=== PATIENT | female | born 1975 | race Caucasian/White ===

== ENCOUNTER 2020-04-30 11:05 | Inpatient (IN) | payer BC ==
[2020-04-30] MEDS ORDERED: PHENAZOPYRIDINE 100 MG TAB PO STA (11:20)
[2020-04-30] MEDS ORDERED: KETOROLAC 15 MG/ML 1 ML VIAL IVP STA (11:20)
[2020-04-30] MEDS ORDERED: ONDANSETRON 4 MG/2 ML VIAL IVP STA (11:20)
[2020-04-30] MEDS ORDERED: SODIUM CHLORIDE 0.9% 1,000 ML IV STA (11:20)
--- NOTE | 2020-04-30 11:25 | ED ---
Abdominal Pain HPI - General Chief Complaint: Abdominal Pain Stated Complaint: hematuria Time Seen by Provider: 04/30/20 11:11 Source: patient, RN notes reviewed Mode of arrival: ambulatory Limitations: no limitations - History of Present Illness Initial Comments: This is a 44-year-old female history kidney stones in the past who states for the past 2 days she's had burning with urination hematuria and very low anterior pelvic pain. No overt flank pain. She states this is different than her kidney stones event. No nausea no vomiting no overt fevers chills or sweats reported. Pain is very severe and sharp in nature. It does get somewhat worse with urinating. No trauma reported no other modifying factors at this time she did try to take some laxative but that did not help either. MD Complaint: abdominal pain - Related Data Home Medications Medication Instructions Recorded Confirmed HYDROcodone/APAP 10-325MG [[place] 1 - 2 tab PO Q4H PRN 04/30/20 04/30/20 10-325] Phentermine HCl [Adipex-P] 37.5 mg PO DAILY 04/30/20 04/30/20 Allergies Allergy/AdvReac Type Severity Reaction Status Date / Time No Known Allergies Allergy Verified 04/30/20 11:33 Review of Systems ROS Statement: Those systems with pertinent positive or pertinent negative responses have been documented in the HPI. ROS Other: All systems not noted in ROS Statement are negative. Past Medical History Past Medical History: No Reported History History of Any Multi-Drug Resistant Organisms: None Reported Past Surgical History: Cholecystectomy Additional Past Surgical History / Comment(s): Kidney stones Past Psychological History: No Psychological Hx Reported Smoking Status: Current every day smoker Past Alcohol Use History: None Reported Past Drug Use History: None Reported General Exam - General Exam Comments Initial Comments: this is a well-developed well-nourished awake alert oriented 3 female Limitations: no limitations General appearance: alert, anxious, in distress Head exam: Present: atraumatic, normocephalic, normal inspection Eye exam: Present: normal appearance, PERRL, EOMI. Absent: scleral icterus, conjunctival injection, periorbital swelling ENT exam: Present: normal exam, mucous membranes moist Neck exam: Present: normal inspection. Absent: tenderness, meningismus, lymphadenopathy Respiratory exam: Present: normal lung sounds bilaterally. Absent: respiratory distress, wheezes, rales, rhonchi, stridor Cardiovascular Exam: Present: normal rhythm, tachycardia, normal heart sounds. Absent: systolic murmur, diastolic murmur, rubs, gallop, clicks GI/Abdominal exam: Present: soft, tenderness, normal bowel sounds. Absent: distended, guarding, rebound, rigid, bruit, pulsatile mass, hernia Rectal exam: Present: deferred Extremities exam: Present: normal inspection, full ROM, normal capillary refill. Absent: tenderness, pedal edema, joint swelling, calf tenderness Back exam: Present: normal inspection, full ROM. Absent: CVA tenderness (R), CVA tenderness (L) Neurological exam: Present: alert, oriented X3, CN II-XII intact Psychiatric exam: Present: normal affect, normal mood Skin exam: Present: warm, dry, intact, normal color. Absent: rash Course Vital Signs 04/30/20 04/30/20 04/30/20 11:09 11:43 12:14 Temperature 97.6 F Pulse Rate 122 H 111 H 104 H Respiratory 20 18 18 Rate Blood Pressure 143/87 133/81 113/67 O2 Sat by Pulse 96 95 94 L Oximetry 04/30/20 04/30/20 12:44 13:05 Temperature Pulse Rate 105 H 101 H Respiratory 18 18 Rate Blood Pressure 138/77 124/66 O2 Sat by Pulse 94 L 97 Oximetry Medical Decision Making - Medical Decision Making I did discuss findings with the patient as well as Dr. Desai. H will be admitted on IV antibiotics and fluids and pain control. - Lab Data Result diagrams: 04/30/20 11:45 04/30/20 11:45 Lab Results 04/30/20 04/30/20 04/30/20 Range/Units 11:45 11:45 11:45 WBC 31.8 H (3.8-10.6) k/uL RBC 5.48 H (3.80-5.40) m/uL Hgb 16.5 H (11.4-16.0) gm/dL Hct 49.9 H (34.0-46.0) % MCV 91.1 (80.0-100.0) fL MCH 30.2 (25.0-35.0) pg MCHC 33.1 (31.0-37.0) g/dL RDW 13.2 (11.5-15.5) % Plt Count 214 (150-450) k/uL MPV 9.4 Neutrophils % 90 % Lymphocytes % 5 % Monocytes % 3 % Eosinophils % 2 % Basophils % 1 % Neutrophils # 28.6 H (1.3-7.7) k/uL Lymphocytes # 1.5 (1.0-4.8) k/uL Monocytes # 0.9 (0-1.0) k/uL Eosinophils # 0.5 (0-0.7) k/uL Basophils # 0.2 (0-0.2) k/uL Manual Slide Review Performed Toxic Granulation Present Sodium 137 (137-145) mmol/L Potassium 3.9 (3.5-5.1) mmol/L Chloride 100 (98-107) mmol/L Carbon Dioxide 25 (22-30) mmol/L Anion Gap 12 mmol/L BUN 21 H (7-17) mg/dL Creatinine 0.85 (0.52-1.04) mg/dL Est GFR (CKD-EPI)AfAm >90 (>60 ml/min/1.73 sqM) Est GFR (CKD-EPI)NonAf 83 (>60 ml/min/1.73 sqM) Glucose 118 H (74-99) mg/dL Plasma Lactic Acid James (0.7-2.0) mmol/L Calcium 9.6 (8.4-10.2) mg/dL Total Bilirubin 1.0 (0.2-1.3) mg/dL AST 23 (14-36) U/L ALT 28 (4-34) U/L Alkaline Phosphatase 162 H (38-126) U/L Creatine Kinase <20 L (30-135) U/L Total Protein 7.8 (6.3-8.2) g/dL Albumin 4.0 (3.5-5.0) g/dL Amylase <30 L (30-110) U/L Lipase 23 (23-300) U/L Urine Color Yellow Urine Appearance Turbid H (Clear) Urine pH 6.0 (5.0-8.0) Ur Specific [place] 1.027 (1.001-1.035) Urine Protein 2+ H (Negative) Urine Glucose (UA) Negative (Negative) Urine Ketones 2+ H (Negative) Urine Blood Large H (Negative) Urine Nitrite Positive H (Negative) Urine Bilirubin 1+ H (Negative) Urine Urobilinogen 6.0 (<2.0) mg/dL Ur Leukocyte Esterase Large H (Negative) Urine RBC 27 H (0-5) /hpf Urine WBC 155 H (0-5) /hpf Urine WBC Clumps Occasional H (None) /hpf Ur Squamous Epith Cells 71 H (0-4) /hpf Urine Bacteria Many H (None) /hpf Urine Mucus Many H (None) /hpf 04/30/20 Range/Units 13:43 WBC (3.8-10.6) k/uL RBC (3.80-5.40) m/uL Hgb (11.4-16.0) gm/dL Hct (34.0-46.0) % MCV (80.0-100.0) fL MCH (25.0-35.0) pg MCHC (31.0-37.0) g/dL RDW (11.5-15.5) % Plt Count (150-450) k/uL MPV Neutrophils % % Lymphocytes % % Monocytes % % Eosinophils % % Basophils % % Neutrophils # (1.3-7.7) k/uL Lymphocytes # (1.0-4.8) k/uL Monocytes # (0-1.0) k/uL Eosinophils # (0-0.7) k/uL Basophils # (0-0.2) k/uL Manual Slide Review Toxic Granulation Sodium (137-145) mmol/L Potassium (3.5-5.1) mmol/L Chloride (98-107) mmol/L Carbon Dioxide (22-30) mmol/L Anion Gap mmol/L BUN (7-17) mg/dL Creatinine (0.52-1.04) mg/dL Est GFR (CKD-EPI)AfAm (>60 ml/min/1.73 sqM) Est GFR (CKD-EPI)NonAf (>60 ml/min/1.73 sqM) Glucose (74-99) mg/dL Plasma Lactic Acid James 0.7 (0.7-2.0) mmol/L Calcium (8.4-10.2) mg/dL Total Bilirubin (0.2-1.3) mg/dL AST (14-36) U/L ALT (4-34) U/L Alkaline Phosphatase (38-126) U/L Creatine Kinase (30-135) U/L Total Protein (6.3-8.2) g/dL Albumin (3.5-5.0) g/dL Amylase (30-110) U/L Lipase (23-300) U/L Urine Color Urine Appearance (Clear) Urine pH (5.0-8.0) Ur Specific [place] (1.001-1.035) Urine Protein (Negative) Urine Glucose (UA) (Negative) Urine Ketones (Negative) Urine Blood (Negative) Urine Nitrite (Negative) Urine Bilirubin (Negative) Urine Urobilinogen (<2.0) mg/dL Ur Leukocyte Esterase (Negative) Urine RBC (0-5) /hpf Urine WBC (0-5) /hpf Urine WBC Clumps (None) /hpf Ur Squamous Epith Cells (0-4) /hpf Urine Bacteria (None) /hpf Urine Mucus (None) /hpf - Radiology Data Radiology results: report reviewed (Imaging reviewed evidence of possible colitis kidney stone left kidney but no obstruction appendix not visualized but no evidence of this time of appendicitis. Recently complete report), image reviewed Disposition Clinical Impression: Urinary tract infection, Abdominal pain, Pyelonephritis, Leukocytosis, Dehydration Disposition: ADMITTED IP TO THIS [facility] Condition: Fair Referrals: Nonstaff,Physician [Primary Care Provider] - 1-2 days
[2020-04-30 11:50] LABS: Basophils # (A) 0.2 k/uL (0-0.2); Basophils % (A) 1 %; Eosinophils # (A) 0.5 k/uL (0-0.7); Eosinophils % (A) 2 %; HCT 49.9 % (34.0-46.0); HGB 16.5 gm/dL (11.4-16.0); Lymphocytes # (A) 1.5 k/uL (1.0-4.8); Lymphocytes % (A) 5 %; MCH 30.2 pg (25.0-35.0); MCHC 33.1 g/dL (31.0-37.0); MCV 91.1 fL (80.0-100.0); Mean Platelet Volume 9.4; Monocytes # (A) 0.9 k/uL (0-1.0); Monocytes % (A) 3 %; Neutrophils # (A) 28.6 k/uL (1.3-7.7); Neutrophils % (A) 90 %; Platelet Count 214 k/uL (150-450); RBC 5.48 m/uL (3.80-5.40); RDW 13.2 % (11.5-15.5); WBC 31.8 k/uL (3.8-10.6)
[2020-04-30 12:05] LABS: ALT 28 U/L (4-34); AST 23 U/L (14-36); African American GFR (CKD) >90 (>60 ml/min/1.73 sqM); Alkaline Phosphatase 162 U/L (38-126); Amylase <30 U/L (30-110); Anion Gap 12 mmol/L; Blood Urea Nitrogen 21 mg/dL (7-17); Calcium 9.6 mg/dL (8.4-10.2); Carbon Dioxide 25 mmol/L (22-30); Chloride 100 mmol/L (98-107); Creatine Kinase <20 U/L (30-135); Glucose 118 mg/dL (74-99); Lipase 23 U/L (23-300); Non-African American GFR(CKD) 83 (>60 ml/min/1.73 sqM); Potassium 3.9 mmol/L (3.5-5.1); Sodium 137 mmol/L (137-145); Total Protein 7.8 g/dL (6.3-8.2)
[2020-04-30] MEDS ORDERED: HYDROmorphone 1 MG/ML 1 ML SYRINGE IVP STA ×2 (12:09→13:16)
[2020-04-30 12:12] LABS: Toxic Granulation Present
[2020-04-30 12:14] LABS: Appearance,Urine Turbid (Clear); Bacteria,Urine Many /hpf; Bilirubin,Urine 1+ (Negative); Blood,Urine Large (Negative); Color,Urine Yellow; Glucose,Urine (UA) Negative (Negative); Ketones,Urine 2+ (Negative); Leukocyte Esterase,Urine Large (Negative); Mucus,Urine Many /hpf; Nitrite,Urine Positive (Negative); Protein,Urine 2+ (Negative); RBC,Urine 27 /hpf (0-5); Specific Gravity,Urine 1.027 (1.001-1.035); Squamous Epithelial Cell,Urine 71 /hpf (0-4); WBC,Urine 155 /hpf (0-5)
--- NOTE | 2020-04-30 12:14 | XR ---
KUB HISTORY: History kidney stones and abdominal pain For KUB and T2 images Surgical clips are present right upper quadrant. There is a calcification in the right upper quadrant measuring approximately 8 mm. Some air-fluid levels are present without bowel distention. Degenerati ve disc changes are present in the visualized spine. No evident pneumoperitoneum. IMPRESSION: Indeterminate right upper quadrant calcification. Postop changes.
[2020-04-30] MEDS ORDERED: cefTRIAXone IN SWFI 1,000 MG/10 ML SYRINGE IVP STA (12:52)
--- NOTE | 2020-04-30 13:20 | CT ---
EXAMINATION TYPE: CT abdomen pelvis wo con DATE OF EXAM: 04/30/2020 COMPARISON: KUB same date HISTORY: Pelvic pain. CT DLP: 746.5 mGycm Automated exposure control for dose reduction was used. TECHNIQUE: Helical acquisition of images from the lung bases through the pelvis. FINDINGS: Lack of intravenous contrast could compromise sensitivity. LUNG BASES: No significant abnormality is appreciated. AORTA: No significant abnormality is appreciated. LIVER/GB: Patient is post cholecystectomy. No evident liver mass.. PANCREAS: No significant abnormality is seen. Probable duodenal diverticulum present at the head of t he pancreas, there is a focus of air probable air-fluid level SPLEEN: No significant abnormality is seen. ADRENALS: No significant abnormality is seen. KIDNEYS: There is no hydronephrosis or ureteral calcification. Calcification seen on plain film is pr esent and is likely parenchymal and anterior cortex of the right kidney measures 1 cm, there is a non obstructive punctate calculus present at the upper pole. At the upper pole the left kidney there is a nonobstructive calculus measuring approximately 6 to 7 mm. The cortex of left kidney somewhat more l obular than on the right, probable cortical cysts present at the midpole level measuring 15 mm. REPRODUCTIVE ORGANS: No significant abnormality is seen. URINARY BLADDER: No significant abnormality is seen. BOWEL: Scattered diverticular changes present within the colon, question some colonic wall thickenin g, the appendix is not seen definitively, question some small bowel fold thickening. Suspect there is some inflammatory changes in the right lower quadrant, axial image 114. FREE AIR: No Free Air is visible. ASCITES: There is some minimal free fluid present within the pelvis.. PELVIC ADENOPATHY: None visualized. RETROPERITONEAL ADENOPATHY: No Retroperitoneal Adenopathy visible. OSSEOUS STRUCTURES: No significant abnormality is seen. IMPRESSION: CORRELATE FOR POSSIBLE COLITIS, ENTERITIS, THERE IS DIVERTICULOSIS AND SOME QUESTIONABLE INFLAMMATORY CHANGE IN THE RIGHT LOWER QUADRANT. Noncontrast exam.
[2020-04-30] MEDS ORDERED: NALOXONE 0.4 MG/ML 1 ML VIAL IV PRN (14:07)
--- NOTE | 2020-04-30 15:23 | P.HPIM ---
History of Present Illness H&P Date: 04/30/20 Chief Complaint: Abdominal pain, dysuria, hematuria 44 year old woman with history of recurrent kidney stones presented with 2 days of hematuria, and increasing dysuria. Patient says that she noticed that in the last couple days, she had sudden onset of pain with urination and it appeared grossly bloody. She also noted that she started to feel abdominal pain in her lower b/l quadrants as well during this time. She has had kidney stones in the past, but notes that this was unlike her kidney stone pain or presentation in episodes past. She denies any other symptoms including fevers, chills, nausea, vomiting, chest pain, palps, dyspnea, syncope, presyncope, dyschezia, hematochezia, melena, diarrhea, numbness/weakness of extremities. In the ER, she was noted to be afebrile, 104/68, tachy to 104. Labs demonstrate significant leukocytosis to 31.8, Hgb 16.5. UA is turbid with 2+ketones, gross hematuria, positive nitrite, large LE; but it is also contaminated with [address] A/P demonstrated colitis, enteritis and some questionable inflammatory change in the RLQ. KUB had questionable RUQ calcification. Review of Systems All Systems reviewed and pertinent positives and negatives noted in HPI, all other symptoms are negative Past Medical History Past Medical History: No Reported History History of Any Multi-Drug Resistant Organisms: None Reported Past Surgical History: Cholecystectomy Additional Past Surgical History / Comment(s): Kidney stones Past Psychological History: No Psychological Hx Reported Smoking Status: Current every day smoker Past Alcohol Use History: None Reported Past Drug Use History: None Reported Medications and Allergies Home Medications Medication Instructions Recorded Confirmed Type HYDROcodone/APAP 10-325MG [[place] 1 - 2 tab PO Q4H PRN 04/30/20 04/30/20 History 10-325] Phentermine HCl [Adipex-P] 37.5 mg PO DAILY 04/30/20 04/30/20 History Allergies Allergy/AdvReac Type Severity Reaction Status Date / Time No Known Allergies Allergy Verified 04/30/20 11:33 Physical Exam Osteopathic Statement: *. No significant issues noted on an osteopathic structural exam other than those noted in the History and Physical/Consult. Vitals: Vital Signs Temp Pulse Resp BP Pulse Ox 04/30/20 15:00 97.6 F 97 18 104/68 95 04/30/20 14:36 97 18 104/68 95 04/30/20 13:05 101 H 18 124/66 97 04/30/20 12:44 105 H 18 138/77 94 L 04/30/20 12:14 104 H 18 113/67 94 L 04/30/20 11:43 111 H 18 133/81 95 04/30/20 11:09 97.6 F 122 H 20 143/87 96 Intake and Output 04/30/20 04/30/20 04/30/20 06:59 14:59 22:59 Other: Weight 81.647 kg Gen: awake, alert HEENT: normocephalic, atraumatic, good hearing acuity, moist mucous membranes Resp: good air exchange, breathing comfortably with no accessory muscle use, clear to auscultation bilaterally without wheezes CVS: good distal perfusion x 4, regular rate and rhythm without murmurs GI: Soft, exquisitely tender palpation, shaking the bed does elicit pain, no rebound, voluntary guarding : no SPT, no CVAT, owens catheter not present MSK: no pitting edema, no clubbing Neuro: non-focal, moving all extremities Psych: cooperative, euthymic mood Results CBC & Chem 7: 04/30/20 11:45 04/30/20 11:45 Labs: Abnormal Lab Results - Last 24 Hours (Table) 04/30/20 04/30/20 04/30/20 Range/Units 11:45 11:45 11:45 WBC 31.8 H (3.8-10.6) k/uL RBC 5.48 H (3.80-5.40) m/uL Hgb 16.5 H (11.4-16.0) gm/dL Hct 49.9 H (34.0-46.0) % Neutrophils # 28.6 H (1.3-7.7) k/uL BUN 21 H (7-17) mg/dL Glucose 118 H (74-99) mg/dL Alkaline Phosphatase 162 H (38-126) U/L Creatine Kinase <20 L (30-135) U/L Amylase <30 L (30-110) U/L Urine Appearance Turbid H (Clear) Urine Protein 2+ H (Negative) Urine Ketones 2+ H (Negative) Urine Blood Large H (Negative) Urine Nitrite Positive H (Negative) Urine Bilirubin 1+ H (Negative) Ur Leukocyte Esterase Large H (Negative) Urine RBC 27 H (0-5) /hpf Urine WBC 155 H (0-5) /hpf Urine WBC Clumps Occasional H (None) /hpf Ur Squamous Epith Cells 71 H (0-4) /hpf Urine Bacteria Many H (None) /hpf Urine Mucus Many H (None) /hpf Assessment and Plan Assessment: 1. Colitis, Enteritis 2. Hematuria 3. History of Kidney Stones 44 year old woman with history of kidney stones presented with worsening hematuria, dysuria, but imaging findings were concerning for colitis and en teritis with question of appendicitis. Plan: - admit to observation - start broad spectrum abx for GI and UTI coverage - rec'd ceftriaxone in the ER, d/c'd - cipro/flagyl started - repeat UA due to high squam count of first sample - await stool culture, c diff, pending - general surgery consult, pending - if infectious colitis ruled out, can consider colonoscopy for evaluation of IBD - consider repeat CT Abd/Pelvis with IV contrast to rule out fistula - pain control with: dilaudid PRN - IVF: NS 130cc/hr - Pt is NPO pending clearance from surgery Full Code
[2020-04-30] MEDS: metroNIDAZOLE-NS PMX 500 MG in SALINE 1 100ML.BAG IVPB SCH ×2 (16:23→22:49)
[2020-04-30] MEDS: HYDROmorphone 0.5 MG/0.5 ML SYRINGE IVP PRN ×3 (16:23→22:47)
[2020-04-30] MEDS: SODIUM CHLORIDE 0.9% 1,000 ML IV SCH ×2 (17:15→19:53)
[2020-04-30 18:43] LABS: Appearance,Urine Cloudy (Clear); Bacteria,Urine Occasional /hpf; Bilirubin,Urine 1+ (Negative); Blood,Urine Moderate (Negative); Color,Urine Dark Brown; Glucose,Urine (UA) Negative (Negative); Ketones,Urine Negative (Negative); Leukocyte Esterase,Urine Small (Negative); Mucus,Urine Many /hpf; Nitrite,Urine Positive (Negative); PH, Urine 5.5 (5.0-8.0); Protein,Urine 1+ (Negative); RBC,Urine 30 /hpf (0-5); Specific Gravity,Urine 1.027 (1.001-1.035); Squamous Epithelial Cell,Urine 6 /hpf (0-4); WBC,Urine 49 /hpf (0-5)
[2020-04-30] MEDS: ONDANSETRON 4 MG/2 ML VIAL IVP PRN (19:46)
[2020-04-30] MEDS: CIPROFLOXACIN/DEXTROSE PMX 400 MG in DEXTROSE/WATER 1 200ML.BAG IVPB SCH (19:53)
[2020-05-01] MEDS: HYDROmorphone 0.5 MG/0.5 ML SYRINGE IVP PRN ×6 (01:53→20:58)
[2020-05-01] MEDS: SODIUM CHLORIDE 0.9% 1,000 ML IV SCH ×3 (04:50→21:09)
[2020-05-01] MEDS: ONDANSETRON 4 MG/2 ML VIAL IVP PRN ×2 (04:51→20:58)
[2020-05-01 06:19] LABS: Basophils # (A) 0.1 k/uL (0-0.2); Basophils % (A) 0 %; Eosinophils # (A) 0.3 k/uL (0-0.7); Eosinophils % (A) 2 %; HCT 42.8 % (34.0-46.0); HGB 13.8 gm/dL (11.4-16.0); Hypochromasia Slight; Lymphocytes # (A) 1.3 k/uL (1.0-4.8); Lymphocytes % (A) 6 %; MCH 29.9 pg (25.0-35.0); MCHC 32.3 g/dL (31.0-37.0); MCV 92.8 fL (80.0-100.0); Mean Platelet Volume 9.8; Monocytes % (A) 4 %; Neutrophils # (A) 19.4 k/uL (1.3-7.7); Neutrophils % (A) 87 %; Platelet Count 196 k/uL (150-450); RBC 4.61 m/uL (3.80-5.40); RDW 13.2 % (11.5-15.5); WBC 22.2 k/uL (3.8-10.6)
[2020-05-01] MEDS: metroNIDAZOLE-NS PMX 500 MG in SALINE 1 100ML.BAG IVPB SCH ×2 (07:36→15:54)
[2020-05-01] MEDS ORDERED: MORPHINE SULFATE 4 MG/ML SYRINGE IVP PRN (08:32)
[2020-05-01 08:55] LABS: African American GFR (CKD) >90 (>60 ml/min/1.73 sqM); Anion Gap 10 mmol/L; Blood Urea Nitrogen 16 mg/dL (7-17); Calcium 8.1 mg/dL (8.4-10.2); Carbon Dioxide 19 mmol/L (22-30); Chloride 104 mmol/L (98-107); Glucose 87 mg/dL (74-99); Non-African American GFR(CKD) >90 (>60 ml/min/1.73 sqM); Potassium 3.8 mmol/L (3.5-5.1); Sodium 133 mmol/L (137-145)
[2020-05-01] MEDS ORDERED: PANTOPRAZOLE 40 MG/10 ML VIAL IV SCH (09:00)
[2020-05-01] MEDS ORDERED: NON FORMULARY DRUG (Phentermine Hcl [Adipex-P] 37.5 MG Tablet) PO SCH (09:00)
[2020-05-01] MEDS: CIPROFLOXACIN/DEXTROSE PMX 400 MG in DEXTROSE/WATER 1 200ML.BAG IVPB SCH ×2 (09:10→20:58)
[2020-05-01] MEDS ORDERED: IOPAMIDOL CONTRAST (ORAL USE) VIAL PO PRN (09:43)
--- NOTE | 2020-05-01 11:28 | CT ---
EXAMINATION TYPE: CT abdomen pelvis w con DATE OF EXAM: 05/01/2020 HISTORY: Pelvic pain, abn CT CT DLP: 1262.8mGycm Automated Exposure Control for Dose Reduction was Utilized. CONTRAST: CT scan of the abdomen and pelvis is performed with IV Contrast, patient injected with 100 mL of Isov ue 300. COMPARISON: CT abdomen and pelvis from yesterday FINDINGS: LUNG BASES: Persistent mild to moderate lateral right basilar linear scarring and/or atelectasis. Dev eloping areas of groundglass opacity in the posterior bases right greater than left could reflect ate lectatic change and/or edema versus early infiltrates. Correlate clinically. Edema or atelectasis amaya pected. LIVER/GB: Cholecystectomy clips redemonstrated. PANCREAS: No significant abnormality is seen. SPLEEN: No significant abnormality is seen. ADRENALS: No significant abnormality is seen. KIDNEYS: There is 8 mm nonobstructing calculus right kidney midpole level anteriorly image 32 redemon strated. Asymmetric diminished size to left kidney with areas of cortical scarring, stable 5 mm nonob structing calculus upper pole level axial image 25. Symmetric cortical medullary uptake and excretion without hydronephrosis seen bilaterally. There is 1.4 cm simple appearing thin-walled cyst laterally upper to mid pole level left kidney image 29 series 5. Subcentimeter lesion axial image 36 presumed benign. BOWEL: Patient had poor tolerance of oral contrast making evaluation of the bowel suboptimal. Persist ent 3.1 cm duodenal diverticulum in second and third portion on coronal image 51 an axial image 30. N o suspicious small bowel dilatation. Slightly more prominent small bowel loops in the lower abdomen a nd pelvis with mild to moderate mesenteric fluid and fat stranding. Scattered colonic diverticula wit h most prominent diverticulosis involving the sigmoid colon. Terminal ileum shows mild/moderate wall thickening with small bowel feces sign. No suspicious dilatation. Mild to moderate wall thickening in the right and transverse colon along with the left colon is present. No suspicious increased focal f at stranding surrounding the sigmoid colon. Appendix appears within normal limits in size from base o f cecum extending medially near axial image 57. [id number] wall thickening and small bowel loop s in the lower abdomen and pelvis. UTERUS/ADNEXA: Stable slightly anteverted uterus. LYMPH NODES: No greater than 1cm abdominal or pelvic lymph nodes are appreciated. OSSEOUS STRUCTURES: Yzno-[id number] narrowing with moderate acetabular spurring of both hips somewha t prominent for patient's age. OTHER: No significant additional abnormality is seen. IMPRESSION: Appendix seen better on today's study without suspicious dilatation or increased surround ing fat stranding. There is worsening inflammatory change in the lower abdomen and pelvis, I suspect a multifocal enterocolitis. Differential includes infectious and/or inflammatory etiologies. Correlat e clinically.
--- NOTE | 2020-05-01 11:58 | P.GSCN ---
History of Present Illness Consult date: 05/01/20 History of present illness: CHIEF COMPLAINT: Abdominal pain HISTORY OF PRESENT ILLNESS: This is a 44-year-old female with a known history of kidney stones and diverticulosis. Patient presents to the emergency room with a 2 day history of lower abdominal pain. She also had reported hematuria and dysuria. Patient reports that the pain does not feel like kidney stones. Patient has been on on antibiotics and reports no improvement in her abdominal pain. She has diffuse abdominal pain but the pain is worse in the lower abdomen. She does report burning with urination. She denies any nausea vomiting, fever chills or sweats. She had a computed tomography scan of the abdomen and pelvis with contrast that dated to correlate for possible colitis, enteritis, there is diverticulosis and some questionable inflammatory change in the right lower quadrant. A repeat computed tomography scan the abdomen and pelvis with contrast completed showing the appendix seen better on today's study without suspicious dilation or increased surrounding fat stranding. There is worsening inflammatory changes in the lower abdomen and pelvis. Suspected multifocal enterocolitis. At home patient reported issues with constipation she took a laxative and had diarrhea. She's had no bowel movement since hospitalization. She denies passing any gas. Patient has been having low-grade temp of 100 and she was tachycardic with heart rate of 105. White count has come down from 31.1-22.2. PAST MEDICAL HISTORY: See list. PAST SURGICAL HISTORY: See list. MEDICATIONS: See list. ALLERGIES: See list. SOCIAL HISTORY: No illicit drug use. REVIEW OF SYSTEMS: CONSTITUTIONAL: Denies fever or chills. HEENT: Denies blurred vision, vision changes, or eye pain. Denies hemoptysis CARDIOVASCULAR: Denies chest pain or pressure. RESPIRATORY: No shortness of breath. GASTROINTESTINAL: See HPI for pertinent findings HEMATOLOGIC: Denies bleeding disorders. GENITOURINARY: Denies any blood in urine or increased urinary frequency. SKIN: Denies pruitis. Denies rash. PHYSICAL EXAM: VITAL SIGNS: Reviewed GENERAL: Well-developed in no acute distress. HEENT: No sclera icterus. Extraocular movements grossly intact. Moist buccal mucosa. Head is atraumatic, normocephalic. No nasal drainage. ABDOMEN: Soft. Mildly distended. Diffuse tenderness. More tenderness in the lower abdomen. Patient has pain with movement of bed NEUROLOGIC: Alert and oriented. Cranial nerves II through XII grossly intact. LABORATORY DATA: WBC is down to 22.2 hemoglobin 13.8 sodium 133 potassium 3.8 creatinine 0.1 BUN 16 Lactate 0.7 UA positive for infection Covid negative IMAGING: computed tomography scan of the abdomen and pelvis with contrast that dated to correlate for possible colitis, enteritis, there is diverticulosis and some questionable inflammatory change in the right lower quadrant. A repeat computed tomography scan the abdomen and pelvis with contrast completed showing the appendix seen better on today's study without suspicious dilation or increased surrounding fat stranding. There is worsening inflammatory changes in the lower abdomen and pelvis. Suspected multifocal enterocolitis. ASSESSMENT: 1. Abdominal pain 2. Enterocolitis PLAN: -Continue clear liquid diet -Continue antibiotics -Continue IV fluids -Continue pain medication as needed -Agree with GI evaluation -No surgical intervention planned at this time Physician Pole Shaver note has been reviewed by physician. Signing provider agrees with the documented findings, assessment, and plan of care. Past Medical History Past Medical History: No Reported History Additional Past Medical History / Comment(s): kidney stones. back pain History of Any Multi-Drug Resistant Organisms: None Reported Past Surgical History: Cholecystectomy Additional Past Surgical History / Comment(s): Kidney stones Past Anesthesia/Blood Transfusion Reactions: No Reported Reaction Past Psychological History: No Psychological Hx Reported Smoking Status: Current every day smoker Past Alcohol Use History: None Reported Past Drug Use History: None Reported - Past Family History Mother Family Medical History: No Reported History Medications and Allergies Home Medications Medication Instructions Recorded Confirmed Type HYDROcodone/APAP 10-325MG [[place] 1 - 2 tab PO Q4H PRN 04/30/20 04/30/20 History 10-325] Phentermine HCl [Adipex-P] 37.5 mg PO DAILY 04/30/20 04/30/20 History Allergies Allergy/AdvReac Type Severity Reaction Status Date / Time No Known Allergies Allergy Verified 04/30/20 15:23 Surgical - Exam Vital Signs Temp Pulse Resp BP Pulse Ox 97.6 F 122 H 20 143/87 96 04/30/20 11:09 04/30/20 11:09 04/30/20 11:09 04/30/20 11:09 04/30/20 11:09 Results - Labs 05/01/20 05:49 05/01/20 05:49 Abnormal Lab Results - Last 24 Hours (Table) 04/30/20 04/30/20 04/30/20 Range/Units 11:45 11:45 11:45 WBC 31.8 H (3.8-10.6) k/uL RBC 5.48 H (3.80-5.40) m/uL Hgb 16.5 H (11.4-16.0) gm/dL Hct 49.9 H (34.0-46.0) % Neutrophils # 28.6 H (1.3-7.7) k/uL Sodium (137-145) mmol/L Carbon Dioxide (22-30) mmol/L BUN 21 H (7-17) mg/dL Glucose 118 H (74-99) mg/dL Calcium (8.4-10.2) mg/dL Alkaline Phosphatase 162 H (38-126) U/L Creatine Kinase <20 L (30-135) U/L Amylase <30 L (30-110) U/L Urine Appearance Turbid H (Clear) Urine Protein 2+ H (Negative) Urine Ketones 2+ H (Negative) Urine Blood Large H (Negative) Urine Nitrite Positive H (Negative) Urine Bilirubin 1+ H (Negative) Ur Leukocyte Esterase Large H (Negative) Urine RBC 27 H (0-5) /hpf Urine WBC 155 H (0-5) /hpf Urine WBC Clumps Occasional H (None) /hpf Ur Squamous Epith Cells 71 H (0-4) /hpf Urine Bacteria Many H (None) /hpf Urine Mucus Many H (None) /hpf 04/30/20 05/01/20 05/01/20 Range/Units 18:20 05:49 05:49 WBC 22.2 H (3.8-10.6) k/uL RBC (3.80-5.40) m/uL Hgb (11.4-16.0) gm/dL Hct (34.0-46.0) % Neutrophils # 19.4 H (1.3-7.7) k/uL Sodium 133 L (137-145) mmol/L Carbon Dioxide 19 L (22-30) mmol/L BUN (7-17) mg/dL Glucose (74-99) mg/dL Calcium 8.1 L (8.4-10.2) mg/dL Alkaline Phosphatase (38-126) U/L Creatine Kinase (30-135) U/L Amylase (30-110) U/L Urine Appearance Cloudy H (Clear) Urine Protein 1+ H (Negative) Urine Ketones (Negative) Urine Blood Moderate H (Negative) Urine Nitrite Positive H (Negative) Urine Bilirubin 1+ H (Negative) Ur Leukocyte Esterase Small H (Negative) Urine RBC 30 H (0-5) /hpf Urine WBC 49 H (0-5) /hpf Urine WBC Clumps (None) /hpf Ur Squamous Epith Cells 6 H (0-4) /hpf Urine Bacteria Occasional H (None) /hpf Urine Mucus Many H (None) /hpf Microbiology - Last 24 Hours (Table) 04/30/20 11:45 Urine Culture - Preliminary Urine,Voided Diabetes panel 04/30/20 05/01/20 Range/Units 11:45 05:49 Sodium 137 133 L (137-145) mmol/L Potassium 3.9 3.8 (3.5-5.1) mmol/L Chloride 100 104 (98-107) mmol/L Carbon Dioxide 25 19 L (22-30) mmol/L BUN 21 H 16 (7-17) mg/dL Creatinine 0.85 0.71 (0.52-1.04) mg/dL Glucose 118 H 87 (74-99) mg/dL Calcium 9.6 8.1 L (8.4-10.2) mg/dL AST 23 (14-36) U/L ALT 28 (4-34) U/L Alkaline Phosphatase 162 H (38-126) U/L Total Protein 7.8 (6.3-8.2) g/dL Albumin 4.0 (3.5-5.0) g/dL Calcium panel 04/30/20 05/01/20 Range/Units 11:45 05:49 Calcium 9.6 8.1 L (8.4-10.2) mg/dL Albumin 4.0 (3.5-5.0) g/dL Pituitary panel 04/30/20 05/01/20 Range/Units 11:45 05:49 Sodium 137 133 L (137-145) mmol/L Potassium 3.9 3.8 (3.5-5.1) mmol/L Chloride 100 104 (98-107) mmol/L Carbon Dioxide 25 19 L (22-30) mmol/L BUN 21 H 16 (7-17) mg/dL Creatinine 0.85 0.71 (0.52-1.04) mg/dL Glucose 118 H 87 (74-99) mg/dL Calcium 9.6 8.1 L (8.4-10.2) mg/dL Adrenal panel 04/30/20 05/01/20 Range/Units 11:45 05:49 Sodium 137 133 L (137-145) mmol/L Potassium 3.9 3.8 (3.5-5.1) mmol/L Chloride 100 104 (98-107) mmol/L Carbon Dioxide 25 19 L (22-30) mmol/L BUN 21 H 16 (7-17) mg/dL Creatinine 0.85 0.71 (0.52-1.04) mg/dL Glucose 118 H 87 (74-99) mg/dL Calcium 9.6 8.1 L (8.4-10.2) mg/dL Total Bilirubin 1.0 (0.2-1.3) mg/dL AST 23 (14-36) U/L ALT 28 (4-34) U/L Alkaline Phosphatase 162 H (38-126) U/L Total Protein 7.8 (6.3-8.2) g/dL Albumin 4.0 (3.5-5.0) g/dL
[2020-05-01] MEDS ORDERED: VANCOMYCIN IV PER PHARMACY 1 EACH MISC MISCELLANE PRN (18:17)
--- NOTE | 2020-05-01 18:25 | CONS ---
CONSULTATION DATE OF SERVICE: 05/01/2020 REQUESTING PHYSICIAN: None. REASON FOR CONSULTATION: Severe abdominal pain and acute colitis. HISTORY OF PRESENT ILLNESS: The patient is a 44-year-old pleasant white female who came to the emergency room yesterday complaining of severe lower abdominal pain that started on evening. The pain was mostly in the lower abdominal area and subsequently became diffuse all over the abdomen and felt extremely constipated. She took a laxative and said that she had 2 or 3 episodes of loose watery stools with no bleeding. The pain continued to persist for the last 2 days and hence she came into the emergency room yesterday and initially had a CT of the abdomen and pelvis done that showed some thickening of the colon with some diverticular changes noted within the colon and also some small bowel wall thickening suspicious for colitis/enteritis. Following admission to the hospital, she was started on broad-spectrum antibiotics for possible acute colitis. However, her pain continued to progressively get worse and this morning it became more intense and she was seen by Surgery and a repeat CT scan was ordered this morning. CT scan was performed at 11:00 am which revealed an 8 mm nonobstructing calculus in the right kidney and persistent duodenal diverticulum. No small bowel dilation. Scattered colonic diverticula but the terminal ileum showed moderate [id number] wall thickening of the right colon as well as the transverse colon extending onto the left colon suspicious for acute colitis. The patient presently on broad-spectrum antibiotics. She continues to remain the same. She has no bowel movements yesterday or today. No rectal bleeding. No nausea, vomiting. No fever, chills, night sweats. Never had these symptoms in the past. No family history of inflammatory bowel disease. PAST MEDICAL HISTORY: None. MEDICATIONS: At home Adipex and [place] for chronic back pain. PAST SURGICAL HISTORY: Cholecystectomy. SOCIAL HISTORY: Chronic smoker. No alcohol use. FAMILY HISTORY: Unremarkable. ALLERGIES: None. REVIEW OF SYSTEMS: CARDIOPULMONARY: No chest pain or shortness of breath. : No dysuria or hematuria. MUSCULOSKELETAL: Unremarkable. SKIN: Unremarkable. ENDOCRINE: Unremarkable. PSYCHIATRIC: Unremarkable. NEUROLOGY: Unremarkable. ENT: Vision unremarkable. MUSCULOSKELETAL: Chronic back pain. CONSTITUTIONAL: No recent weight loss. No fever, chills, night sweats. PHYSICAL EXAMINATION: She appears comfortable. No apparent distress. VITAL SIGNS: Stable. Blood pressure 138/79, pulse rate 105, temperature 98.6, T-max was 10. HEENT: Examination unremarkable. Conjunctivae are pink. Sclerae anicteric. Oral cavity no lesions. NECK: No JVD or lymph node enlargement. CHEST: Clear to auscultation. HEART: Regular rate and rhythm. ABDOMEN: Diffusely tender all over the abdomen. There was no rebound or rigidity. It was soft EXTREMITIES: No pedal edema. NEURO: She is alert and oriented x3. No focal deficits. LABS: At the time of admission to the hospital WBC was 31.8, hemoglobin 16.5, and platelets 19. Neutrophils were 28.6. Today WBC is down to 22.6. Basic metabolic panel is within normal limits. BUN 21, creatinine 0.08. Amylase and lipase are normal. ALT, AST, T bilirubin are normal. Alkaline phosphatase 162. Urinalysis is large leukocyte esterase coronavirus PCR is negative. IMPRESSION: This is a patient who presented to the hospital with acute onset of severe diffuse abdominal pain that started 3 days ago, associated with initially some constipation and subsequently took a laxative and had some diarrhea but no rectal bleeding. No bowel movements for the last 2 days. She had 2 CT scans 24 hours apart that showed evidence of diffuse wall thickening in the terminal ileum as well as in the colon consistent with acute colitis most likely infectious in etiology. The patient is on empiric antibiotics with Cipro and Flagyl that was started yesterday and leukocytosis has improved from 31,000-21,000. Most likely dealing with infectious colitis. Doubt inflammatory bowel disease. RECOMMENDATIONS: 1. Continue with broad-spectrum antibiotics. 2. Clear liquid diet. 3. Monitor labs closely. 4. No plans on any endoscopy intervention at the present time. We will follow with you closely. Thank you for this consultation. MMODL / IJN: [id number] /
--- NOTE | 2020-05-01 18:41 | P.PN ---
Subjective Progress Note Date: 05/01/20 (Delayed charting seen at 1206) Principal diagnosis: abdominal pain Patient is a 44-year-old female with a history of recurrent kidney stone, tobacco abuse, and prior cholecystectomy who presented with 2 days of hematuria and dysuria. In the ER she underwent an extensive evaluation. On arrival she was tachycardic with a pulse of 122. Laboratory analysis showed white blood ce ll count 31.8, hemoglobin 16.5, and urinalysis consistent with urinary tract infection. She underwent a CT which showed possible colitis and enteritis as well as diverticulosis and some possible inflammatory changes in the right lower quadrant. She was started on IV fluids and antibiotics. She is admitted for UTI with sepsis and enteritis. Surgery was consulted and recommended repeat CT abdomen and pelvis which showed worsening inflammatory changes in the lower abdomen and pelvis suspect she and of multifocal enterocolitis with infectious or inflammatory etiologies possible. Subsequently gastroenterology was consulted. Blood cultures came back with gram-positive cocci and vancomycin was added to her Cipro and Flagyl. Patient seen and examined at bedside. She continues to have abdominal pain. She states that when she takes the Dilaudid her pain is worse for 5 minutes and then is better. She states that taking in any orals including water makes her abdominal pain worse. She is not currently having any nausea or vomiting. She continues to have some dysuria and hematuria. General: Ill appearing, mild distress secondary to pain, appears at stated age Derm: warm, dry Head: atraumatic, normocephalic, symmetric Eyes: EOMI, no lid lag, anicteric sclera Mouth: no lip lesion, mucus membranes dry Cardiovascular: S1S2 reg, no murmur, positive posterior tibial pulse bilateral, Lungs: Decreased breath sounds bilateral bilateral, no rhonchi, no rales , no accessory muscle use Abdominal: soft, tender to palpation diffusely worse in right and left lower quadrants, no guarding, no appreciable organomegaly Ext: no gross muscle atrophy, no edema, no contractures Neuro: CN II-XI grossly intact, no focal neuro deficits Psych: Alert, oriented, appropriate affect UTI with sepsis -Continue with Cipro -IV fluids -Await culture Enterocolitis, multifocal -Surgery recommendations -GI consultation -Check CRP -Continue with a Cipro/Flagyl Gram-positive bacteremia -Unclear source, possible staph saprophyticus related to UTI -Await identification -Vancomycin -Repeat blood cultures in a.m. Tobacco abuse -Cessation -Nicotine replacement DVT prophylaxis: SCDs Discussed with: Patient, nursing Anticipated discharge: 3-[address]: Home A total of 45 minutes was spent on the care of this complex patient more than 50% of the time was spent in counseling and care coordination. Objective - Vital Signs Vital signs: Vital Signs Temp 99.5 F 05/01/20 14:00 Pulse 101 H 05/01/20 16:07 Resp 18 05/01/20 16:08 BP 126/74 05/01/20 14:00 Pulse Ox 95 05/01/20 16:07 Intake & Output 04/30/20 05/01/20 05/01/20 18:59 06:59 18:59 Output Total 300 400 850 Balance -300 -400 -850 Weight 82.645 kg Output: Urine 300 400 850 Other: Voiding Method Toilet Toilet # Voids 1 - Labs CBC & Chem 7: 05/01/20 05:49 05/01/20 05:49 Labs: Abnormal Lab Results - Last 24 Hours (Table) 04/30/20 05/01/20 05/01/20 Range/Units 18:20 05:49 05:49 WBC 22.2 H (3.8-10.6) k/uL Neutrophils # 19.4 H (1.3-7.7) k/uL Sodium 133 L (137-145) mmol/L Carbon Dioxide 19 L (22-30) mmol/L Calcium 8.1 L (8.4-10.2) mg/dL Urine Appearance Cloudy H (Clear) Urine Protein 1+ H (Negative) Urine Blood Moderate H (Negative) Urine Nitrite Positive H (Negative) Urine Bilirubin 1+ H (Negative) Ur Leukocyte Esterase Small H (Negative) Urine RBC 30 H (0-5) /hpf Urine WBC 49 H (0-5) /hpf Ur Squamous Epith Cells 6 H (0-4) /hpf Urine Bacteria Occasional H (None) /hpf Urine Mucus Many H (None) /hpf Microbiology - Last 24 Hours (Table) 04/30/20 11:45 Blood Culture Gram Stain - Preliminary Blood 04/30/20 11:45 Blood Culture - Final Blood 04/30/20 11:45 Blood Culture - Preliminary Blood No Growth after 24 hours 01/31/21 11:45 Urine Culture - Preliminary Urine,Voided
[2020-05-01] MEDS: VANCOMYCIN 1,500 MG in SODIUM CHLORIDE 0.9% 250 ML IVPB SCH (18:50)
[2020-05-02] MEDS: VANCOMYCIN 1,500 MG in SODIUM CHLORIDE 0.9% 250 ML IVPB SCH (02:43)
[2020-05-02] MEDS: HYDROmorphone 0.5 MG/0.5 ML SYRINGE IVP PRN ×7 (02:50→21:33)
[2020-05-02] MEDS: SODIUM CHLORIDE 0.9% 1,000 ML IV SCH ×2 (02:51→16:37)
[2020-05-02] MEDS: PANTOPRAZOLE 40 MG TABLET PO SCH (06:18)
[2020-05-02] MEDS: ONDANSETRON 4 MG/2 ML VIAL IVP PRN (06:18)
[2020-05-02 06:24] LABS: HCT 43.4 % (34.0-46.0); Hypochromasia Slight; MCH 29.8 pg (25.0-35.0); MCHC 32.2 g/dL (31.0-37.0); MCV 92.5 fL (80.0-100.0); Mean Platelet Volume 8.5; Platelet Count 209 k/uL (150-450); RDW 13.2 % (11.5-15.5); WBC 15.1 k/uL (3.8-10.6)
[2020-05-02 06:34] LABS: African American GFR (CKD) >90 (>60 ml/min/1.73 sqM); Non-African American GFR(CKD) >90 (>60 ml/min/1.73 sqM)
[2020-05-02 07:05] LABS: C Reactive Protein 373.6 mg/L (<10.0)
[2020-05-02] MEDS: metroNIDAZOLE-NS PMX 500 MG in SALINE 1 100ML.BAG IVPB SCH ×4 (07:46→23:57)
--- NOTE | 2020-05-02 08:44 | P.PN ---
Subjective Progress Note Date: 05/02/20 Principal diagnosis: Abdominal pain, colitis C 44-year-old pleasant patient who came into the emergency room with complaints of severe lower abdominal pain that started evening. She states the pain is mostly in her lower abdominal area and subsequently became diffuse all over the abdomen and felt extremely constipated therefore she took a laxative. She states she had 2-3 loose bowel movements that were nonbloody. The patient was seen and examined lying in bed. She states her pain is slightly improved. She denies any nausea or vomiting but states that the pain worsens with any liquids. She had is a bowel movement this morning which she states was soft, nonbloody. Objective - Vital Signs Vital signs: Vital Signs Temp 98.7 F 05/02/20 02:00 Pulse 98 05/02/20 02:00 Resp 18 05/02/20 02:00 BP 149/81 05/02/20 02:00 Pulse Ox 92 L 05/02/20 02:00 Intake & Output 05/01/20 05/02/20 05/02/20 18:59 06:59 18:59 Output Total 1075 2 Balance -1075 -2 Output: Urine 1075 2 Other: Voiding Method Toilet # Voids 650 - Exam General appearance: The patient is alert, oriented, in no acute distress. HET: Head is normocephalic and atraumatic. Conjunctiva pink. Sclera anicteric. Neck: Supple without lymphadenopathy. Abdomen: Soft, diffuse tenderness, nondistended with bowel sounds. No guarding or rigidity. Extremities: Normal skin color and turgor. No pedal edema Neurological: No focal deficits. Alert and oriented 3. - Labs CBC & Chem 7: 05/02/20 06:08 05/02/20 06:08 Labs: Abnormal Lab Results - Last 24 Hours (Table) 05/01/20 05/02/20 05/02/20 Range/Units 05:49 06:08 06:08 WBC 15.1 H (3.8-10.6) k/uL Sodium 133 L (137-145) mmol/L Carbon Dioxide 19 L (22-30) mmol/L Calcium 8.1 L (8.4-10.2) mg/dL C-Reactive Protein 373.6 H (<10.0) mg/L Microbiology - Last 24 Hours (Table) 04/30/20 11:45 Blood Culture Gram Stain - Preliminary Blood Blood Culture - Preliminary Coagulase Negative Staph 04/30/20 11:45 Urine Culture - Preliminary Urine,Voided Gram Neg Bacilli 04/30/20 11:45 Blood Culture - Final Blood 04/30/20 11:45 Blood Culture - Preliminary Blood No Growth after 24 hours Assessment and Plan (1) Abdominal pain Narrative/Plan: A 44-year-old female patient who presented to the hospital with acute onset of severe diffuse abdominal pain that started 3 days ago associated with initially some constipation and subsequently took a laxative followed by diarrhea with rectal bleeding. No bowel movements for the last 2 days. She had 2 CAT scans within 24 hours apart that showed evidence of diffuse wall thickening in the terminal ileum as well as in the colon consistent with acute colitis most likely infectious in etiology. The patient is on empiric antibiotics with Cipro and Flagyl was started 2 days ago with leukocytosis has improved from 31,000 21,000. Most likely dealing with infectious colitis. Doubt inflammatory bowel disease. Patient with improved pain in her abdomen, nausea and vomiting has subsided. Current Visit: Yes Status: Acute Code(s): R10.9 - UNSPECIFIED ABDOMINAL PAIN SNOMED Code(s): 64600863 (2) Colitis Current Visit: Yes Status: Acute Code(s): K52.9 - NONINFECTIVE GASTROENTERITIS AND COLITIS, UNSPECIFIED SNOMED Code(s): 16556484 Plan: 1. Supportive care 2. Continue with clear liquid diet 3. Protonix 40 mg twice a day 4. Continue with broad-spectrum antibiotics 5. No plans for endoscopy at this time, patient to follow-up in 1-[address] You Carter I agree with the dictator's note, documented as a scribe by Mary Kay Hernandez.
[2020-05-02] MEDS: CIPROFLOXACIN/DEXTROSE PMX 400 MG in DEXTROSE/WATER 1 200ML.BAG IVPB SCH (09:02)
--- NOTE | 2020-05-02 12:52 | P.PN ---
Subjective Progress Note Date: 05/02/20 (delayed charting seen at 1110) Principal diagnosis: abdominal pain Patient is a 44-year-old female with a history of recurrent kidney stone, tobacco abuse, and prior cholecystectomy who presented with 2 days of hematuria and dysuria. In the ER she underwent an extensive evaluation. On arrival she was tachycardic with a pulse of 122. Laboratory analysis showed white blood ce ll count 31.8, hemoglobin 16.5, and urinalysis consistent with urinary tract infection. She underwent a CT which showed possible colitis and enteritis as well as diverticulosis and some possible inflammatory changes in the right lower quadrant. She was started on IV fluids and antibiotics. She is admitted for UTI with sepsis and enteritis. Surgery was consulted and recommended repeat CT abdomen and pelvis which showed worsening inflammatory changes in the lower abdomen and pelvis suspect she and of multifocal enterocolitis with infectious or inflammatory etiologies possible. Subsequently gastroenterology was consulted. Blood cultures came back with Coag neg staph which was determined to be a contaminate, she was treated with vanco while culture results were finalized. GI recommended outpatient colonoscopy in 2-4 weeks. Patient seen and examined at bedside. ABD pain is still present but improved since yesterday. Having increased pain if she takes in to much jello, discussed limiting oral intake, no vomiting, stool X 1 formed no blood. General: Ill appearing, no distress, appears at stated age Derm: warm, dry Head: atraumatic, normocephalic, symmetric Eyes: EOMI, no lid lag, anicteric sclera Mouth: no lip lesion, mucus membranes dry Cardiovascular: S1S2 reg, no murmur, positive posterior tibial pulse bilateral, Lungs: Decreased breath sounds bilateral bilateral, no rhonchi, no rales , no accessory muscle use Abdominal: soft, tender to palpation diffusely, no guarding, no appreciable organomegaly Ext: no gross muscle atrophy, no edema, no contractures Neuro: CN II-XI grossly intact, no focal neuro deficits Psych: Alert, oriented, appropriate affect Gram negative UTI with sepsis -Continue with Cipro -IV fluids -Await final culture Enterocolitis, multifocal -Surgery recommendations appreciated no surgical intervention at tis time -GI recs: IV abx, outpatient scope in 2-4 weeks -Elevated CRP, repeat in AM -Continue with a Cipro/Flagyl - clear liquids Gram-positive bacteremia, contaminate with coag neg staph - stopped Vanco Tobacco abuse -Cessation -Nicotine replacement FMLA paper work filled out DVT prophylaxis: SCDs Discussed with: Patient, nursing, GI [employer] Anticipated discharge: 2-[address]: Home A total of 35 minutes was spent on the care of this complex patient more than 50% of the time was spent in counseling and care coordination. Objective - Vital Signs Vital signs: Vital Signs Temp 97.9 F 05/02/20 09:10 Pulse 88 05/02/20 09:10 Resp 18 05/02/20 09:10 BP 119/72 05/02/20 09:10 Pulse Ox 92 L 05/02/20 02:00 Intake & Output 05/01/20 05/02/20 05/02/20 18:59 06:59 18:59 Output Total 1075 2 Balance -1075 -2 Output: Urine 1075 2 Other: Voiding Method Toilet # Voids 650 1 - Labs CBC & Chem 7: 05/02/20 06:08 05/02/20 06:08 Labs: Abnormal Lab Results - Last 24 Hours (Table) 05/02/20 05/02/20 Range/Units 06:08 06:08 WBC 15.1 H (3.8-10.6) k/uL C-Reactive Protein 373.6 H (<10.0) mg/L Microbiology - Last 24 Hours (Table) 04/30/20 11:45 Blood Culture Gram Stain - Preliminary Blood Blood Culture - Preliminary Coagulase Negative Staph 04/30/20 11:45 Urine Culture - Preliminary Urine,Voided Gram Neg Bacilli 04/30/20 11:45 Blood Culture - Final Blood 04/30/20 11:45 Blood Culture - Preliminary Blood No Growth after 24 hours
--- NOTE | 2020-05-02 14:35 | P.PN ---
Subjective Progress Note Date: 05/02/20 CHIEF COMPLAINT: Abdominal pain HISTORY OF PRESENT ILLNESS: Patient is being followed for her abdominal pain and enterocolitis. She has had some improvement today in her pain. She was able to have a bowel movement and passed gas. She denies any nausea or vomiting. There was no presence of blood in her stools. She has decreased appetite. Afebrile. WBC is down to 15.1 urine culture gram-negative bacilli blood culture coagulase negative staph. Patient also seen by GI service. She is on antibiotics. She is also being treated for UTI with sepsis. CRP elevated. PHYSICAL EXAM: VITAL SIGNS: Reviewed. GENERAL: Well-developed in no acute distress. HEENT: No sclera icterus. Extraocular movements grossly intact. Moist buccal mucosa. Head is atraumatic, normocephalic. ABDOMEN: Soft. Mildly distended decrease in tenderness NEUROLOGIC: Alert and oriented. Cranial nerves II through XII grossly intact. ASSESSMENT: 1. Abdominal pain 2. Enterocolitis PLAN: -Continue clear liquid diet -Continue antibiotics -Continue IV fluids -Continue pain medication as needed -No surgical intervention planned at this time Physician Construction Field Engineer note has been reviewed by physician. Signing provider agrees with the documented findings, assessment, and plan of care. Objective - Vital Signs Vital signs: Vital Signs Temp 98 F 05/02/20 13:39 Pulse 81 05/02/20 13:39 Resp 18 05/02/20 13:42 BP 133/79 05/02/20 13:39 Pulse Ox 94 L 05/02/20 13:39 Intake & Output 05/01/20 05/02/20 05/02/20 18:59 06:59 18:59 Output Total 1075 2 Balance -1075 -2 Output: Urine 1075 2 Other: Voiding Method Toilet # Voids 650 1 - Labs CBC & Chem 7: 05/02/20 06:08 05/02/20 06:08 Labs: Abnormal Lab Results - Last 24 Hours (Table) 05/02/20 05/02/20 Range/Units 06:08 06:08 WBC 15.1 H (3.8-10.6) k/uL C-Reactive Protein 373.6 H (<10.0) mg/L Microbiology - Last 24 Hours (Table) 04/30/20 11:45 Blood Culture - Preliminary Blood No Growth after 48 hours 04/30/20 11:45 Blood Culture Gram Stain - Preliminary Blood Blood Culture - Preliminary Coagulase Negative Staph 04/30/20 11:45 Urine Culture - Preliminary Urine,Voided Gram Neg Bacilli 04/30/20 11:45 Blood Culture - Final Blood
[2020-05-02] MEDS ORDERED: ACETAMINOPHEN TAB 325 MG TAB PO PRN (18:04)
[2020-05-02] MEDS ORDERED: MELATONIN 5 MG TABLET PO PRN (18:04)
[2020-05-03] MEDS: SODIUM CHLORIDE 0.9% 1,000 ML IV SCH ×3 (00:02→19:29)
[2020-05-03] MEDS: HYDROmorphone 0.5 MG/0.5 ML SYRINGE IVP PRN ×5 (00:40→23:37)
[2020-05-03] MEDS: PANTOPRAZOLE 40 MG TABLET PO SCH (06:30)
[2020-05-03 06:41] LABS: HCT 43.8 % (34.0-46.0); HGB 14.1 gm/dL (11.4-16.0); Hypochromasia Slight; MCH 29.5 pg (25.0-35.0); MCHC 32.1 g/dL (31.0-37.0); MCV 91.7 fL (80.0-100.0); Mean Platelet Volume 8.5; Platelet Count 236 k/uL (150-450); RBC 4.77 m/uL (3.80-5.40); RDW 13.4 % (11.5-15.5); WBC 12.7 k/uL (3.8-10.6)
[2020-05-03 06:57] LABS: African American GFR (CKD) >90 (>60 ml/min/1.73 sqM); Anion Gap 10 mmol/L; Blood Urea Nitrogen 10 mg/dL (7-17); Calcium 8.3 mg/dL (8.4-10.2); Carbon Dioxide 22 mmol/L (22-30); Chloride 105 mmol/L (98-107); Glucose 89 mg/dL (74-99); Magnesium 1.7 mg/dL (1.6-2.3); Non-African American GFR(CKD) >90 (>60 ml/min/1.73 sqM); Potassium 3.5 mmol/L (3.5-5.1); Sodium 137 mmol/L (137-145)
[2020-05-03] MEDS: metroNIDAZOLE-NS PMX 500 MG in SALINE 1 100ML.BAG IVPB SCH ×3 (08:05→23:38)
[2020-05-03] MEDS: HYDROcodone/APAP 5-325MG 1 EACH TAB PO PRN (13:00)
--- NOTE | 2020-05-03 14:31 | P.PN ---
Subjective Progress Note Date: 05/03/20 (delayed charting seen at 0845) Principal diagnosis: abdominal pain Patient is a 44-year-old female with a history of recurrent kidney stone, tobacco abuse, and prior cholecystectomy who presented with 2 days of hematuria and dysuria. In the ER she underwent an extensive evaluation. On arrival she was tachycardic with a pulse of 122. Laboratory analysis showed white blood ce ll count 31.8, hemoglobin 16.5, and urinalysis consistent with urinary tract infection. She underwent a CT which showed possible colitis and enteritis as well as diverticulosis and some possible inflammatory changes in the right lower quadrant. She was started on IV fluids and antibiotics. She is admitted for UTI with sepsis and enteritis. Surgery was consulted and recommended repeat CT abdomen and pelvis which showed worsening inflammatory changes in the lower abdomen and pelvis suspect she and of multifocal enterocolitis with infectious or inflammatory etiologies possible. Subsequently gastroenterology was consulted. Blood cultures came back with Coag neg staph which was determined to be a contaminate, she was treated with vanco while culture results were finalized. GI recommended outpatient colonoscopy in 2-4 weeks. Diet increased to full liquids on 05/03/20. Patient seen and examined at bedside. ABD is improving, tolerating clears well, did not drink much yesterday. No shortness of breath. Dysuria is getting better. She is wanting to go home. General: Ill appearing, no distress, appears at stated age Derm: warm, dry Head: atraumatic, normocephalic, symmetric Eyes: EOMI, no lid lag, anicteric sclera Mouth: no lip lesion, mucus membranes dry Cardiovascular: S1S2 reg, no murmur, positive posterior tibial pulse bilateral, Lungs: Decreased breath sounds bilateral bilateral, no rhonchi, no rales , no accessory muscle use Abdominal: soft, tender to palpation RUQ and LUQ, no guarding, no appreciable organomegaly Ext: no gross muscle atrophy, no edema, no contractures Neuro: CN II-XI grossly intact, no focal neuro deficits Psych: Alert, oriented, appropriate affect Klebsiella UTI with sepsis -[place] started 05/01/20 -IV fluids Enterocolitis, multifocal -Surgery recommendations appreciated no surgical intervention at tis time -GI recs: IV abx, outpatient scope in 2-4 weeks -Continue with a Rocephin/Flagyl -Full Liquids Tobacco abuse -Cessation Gram-positive bacteremia, contaminate with coag neg staph, ruled out DVT prophylaxis: SCDs Discussed with: Patient, nursing Anticipated discharge: 1-[address]: Home A total of 35 minutes was spent on the care of this complex patient more than 50% of the time was spent in counseling and care coordination. Objective - Vital Signs Vital signs: Vital Signs Temp 97.9 F 05/03/20 12:53 Pulse 74 05/03/20 12:53 Resp 20 05/03/20 12:53 BP 151/86 05/03/20 12:53 Pulse Ox 96 05/03/20 12:53 Intake & Output 05/02/20 05/03/20 05/03/20 18:59 06:59 18:59 Intake Total 0 Output Total 275 Balance -275 0 Intake: Oral 0 Output: Urine 275 Other: Voiding Method Toilet # Voids 1 2 # Bowel Movements 1 0 - Labs CBC & Chem 7: 05/03/20 06:15 05/03/20 06:15 Labs: Abnormal Lab Results - Last 24 Hours (Table) 05/03/20 05/03/20 Range/Units 06:15 06:15 WBC 12.7 H (3.8-10.6) k/uL Calcium 8.3 L (8.4-10.2) mg/dL Microbiology - Last 24 Hours (Table) 04/30/20 11:45 Blood Culture - Preliminary Blood No Growth after 72 hours 04/30/20 11:45 Blood Culture Gram Stain - Final Blood Blood Culture - Final Coagulase Negative Staph 05/01/20 20:25 Blood Culture - Preliminary Blood No Growth after 24 hours 05/01/20 20:25 Blood Culture - Preliminary Blood No Growth after 24 hours 04/30/20 11:45 Urine Culture - Final Urine,Voided Klebsiella pneumoniae
--- NOTE | 2020-05-03 15:00 | P.PN ---
Subjective Progress Note Date: 05/03/20 Principal diagnosis: Abdominal pain, colitis C 44-year-old pleasant patient who came into the emergency room with complaints of severe lower abdominal pain that started evening. She states the pain is mostly in her lower abdominal area and subsequently became diffuse all over the abdomen and felt extremely constipated therefore she took a laxative. The patient was seen and examined lying in bed. She states her pain is improved. She denies any nausea or vomiting She had is a bowel movement this morning which she states was soft, nonbloody. Objective - Vital Signs Vital signs: Vital Signs Temp 98.3 F 05/03/20 08:05 Pulse 85 05/03/20 08:05 Resp 16 05/03/20 08:05 BP 158/94 05/03/20 08:05 Pulse Ox 96 05/03/20 08:05 Intake & Output 05/02/20 05/03/20 05/03/20 18:59 06:59 18:59 Intake Total 0 Output Total 275 Balance -275 0 Intake: Oral 0 Output: Urine 275 Other: Voiding Method Toilet # Voids 1 2 # Bowel Movements 1 0 - Exam General appearance: The patient is alert, oriented, in no acute distress. HET: Head is normocephalic and atraumatic. Conjunctiva pink. Sclera anicteric. Neck: Supple without lymphadenopathy. Abdomen: Soft, diffuse tenderness, nondistended with bowel sounds. No guarding or rigidity. Extremities: Normal skin color and turgor. No pedal edema Neurological: No focal deficits. Alert and oriented 3. - Labs CBC & Chem 7: 05/03/20 06:15 05/03/20 06:15 Labs: Abnormal Lab Results - Last 24 Hours (Table) 05/03/20 05/03/20 Range/Units 06:15 06:15 WBC 12.7 H (3.8-10.6) k/uL Calcium 8.3 L (8.4-10.2) mg/dL Microbiology - Last 24 Hours (Table) 04/30/20 11:45 Blood Culture Gram Stain - Final Blood Blood Culture - Final Coagulase Negative Staph 05/01/20 20:25 Blood Culture - Preliminary Blood No Growth after 24 hours 05/01/20 20:25 Blood Culture - Preliminary Blood No Growth after 24 hours 04/30/20 11:45 Urine Culture - Final Urine,Voided Klebsiella pneumoniae 04/30/20 11:45 Blood Culture - Preliminary Blood No Growth after 48 hours Assessment and Plan (1) Abdominal pain Narrative/Plan: A 44-year-old female patient who presented to the hospital with acute onset of severe diffuse abdominal pain that started 3 days ago associated with initially some constipation and subsequently took a laxative followed by diarrhea with rectal bleeding. No bowel movements for the last 2 days. She had 2 CAT scans within 24 hours apart that showed evidence of diffuse wall thickening in the terminal ileum as well as in the colon consistent with acute colitis most likely infectious in etiology. The patient is on empiric antibiotics with Cipro and Flagyl was started 2 days ago with leukocytosis has improved from 31,000 21,000. Most likely dealing with infectious colitis. Doubt inflammatory bowel disease. Patient with improved pain in her abdomen, nausea and vomiting has subsided. Current Visit: Yes Status: Acute Code(s): R10.9 - UNSPECIFIED ABDOMINAL PAIN SNOMED Code(s): 45894437 (2) Colitis Current Visit: Yes Status: Acute Code(s): K52.9 - NONINFECTIVE GASTROENTERITIS AND COLITIS, UNSPECIFIED SNOMED Code(s): 83243684 Plan: 1. Supportive care 2. Advance diet as tolerated 3. Protonix 40 mg twice a day 4. Continue with broad-spectrum antibiotics 5. No plans for endoscopy at this time, patient to follow-up in 1-2 weeks. Patient may be discharged home in the morning if tolerating diet Dr. You Carter I agree with the dictator's note, documented as a scribe by Mary Kay Hernandez.
--- NOTE | 2020-05-03 16:32 | P.PN ---
Progress Note - Text Progress Note Date: 05/03/20 Patient feels better. She is extremely hungry. She does not like her clear liquids. On exam vital signs are stable. Abdomen soft. There is less tenderness. There is no rebound or guarding. Resolving enterocolitis. Patient will have her diet advanced.
[2020-05-03 20:07] VITALS: RESP 18; TEMP 97.6
[2020-05-04] MEDS: ONDANSETRON 4 MG/2 ML VIAL IVP PRN (03:45)
[2020-05-04] MEDS: HYDROmorphone 0.5 MG/0.5 ML SYRINGE IVP PRN (03:46)
[2020-05-04 06:25] LABS: HCT 42.1 % (34.0-46.0); Hypochromasia Moderate; MCHC 30.8 g/dL (31.0-37.0); Mean Platelet Volume 8.6; Platelet Count 230 k/uL (150-450); RBC 4.48 m/uL (3.80-5.40); RDW 14.2 % (11.5-15.5); WBC 12.5 k/uL (3.8-10.6)
[2020-05-04 06:45] LABS: ALT 9 U/L (4-34); AST 16 U/L (14-36); African American GFR (CKD) >90 (>60 ml/min/1.73 sqM); Albumin 2.5 g/dL (3.5-5.0); Alkaline Phosphatase 101 U/L (38-126); Anion Gap 5 mmol/L; Blood Urea Nitrogen 9 mg/dL (7-17); Calcium 8.1 mg/dL (8.4-10.2); Carbon Dioxide 24 mmol/L (22-30); Chloride 107 mmol/L (98-107); Glucose 95 mg/dL (74-99); Magnesium 1.6 mg/dL (1.6-2.3); Non-African American GFR(CKD) >90 (>60 ml/min/1.73 sqM); Potassium 3.3 mmol/L (3.5-5.1); Sodium 136 mmol/L (137-145); Total Bilirubin 0.4 mg/dL (0.2-1.3); Total Protein 5.4 g/dL (6.3-8.2)
[2020-05-04 07:03] LABS: C Reactive Protein 128.6 mg/L (<10.0)
[2020-05-04] MEDS: metroNIDAZOLE-NS PMX 500 MG in SALINE 1 100ML.BAG IVPB SCH (08:31)
[2020-05-04] MEDS: PANTOPRAZOLE 40 MG TABLET PO SCH (08:32)
[2020-05-04 08:40] VITALS: BP 156/92; PULSE 86
[2020-05-04] MEDS: SODIUM CHLORIDE 0.9% 1,000 ML IV SCH (08:50)
[2020-05-04] MEDS ORDERED: FLUCONAZOLE 150 MG TAB PO STA (09:20)
[2020-05-04] MEDS: HYDROcodone/APAP 5-325MG 1 EACH TAB PO PRN (09:32)
[2020-05-04 10:32] LABS: Band Neutrophils % 1 %; Eosinophils # (M) 0.38 k/uL (0-0.7); Monocytes # (M) 1.38 k/uL (0-1.0); Neutrophils % (M) 73 %; Nucleated Red Blood Cells 0 /100 WBC (0-0); Total Cells Counted 100
[2020-05-04 10:33] LABS: Poikilocytosis (M) Present
--- NOTE | 2020-05-04 10:54 | P.PN ---
Subjective Progress Note Date: 05/04/20 Principal diagnosis: Abdominal pain, colitis C 44-year-old pleasant patient who came into the emergency room with complaints of severe lower abdominal pain that started evening. She states the pain is mostly in her lower abdominal area and subsequently became diffuse all over the abdomen and felt extremely constipated therefore she took a laxative. The patient was seen and examined. She states her pain is improved. She denies any nausea or vomiting. She is tolerating a regular diet. Objective - Vital Signs Vital signs: Vital Signs Temp 97.6 F 05/04/20 08:15 Pulse 86 05/04/20 08:15 Resp 18 05/04/20 08:15 BP 156/92 05/04/20 08:15 Pulse Ox 96 05/04/20 08:15 Intake & Output 05/03/20 05/04/20 05/04/20 18:59 06:59 18:59 Intake Total 540 100 Output Total 3 Balance 537 100 Intake: Oral 540 100 Output: Urine 3 Other: Voiding Method Toilet # Voids 2 - Exam General appearance: The patient is alert, oriented, in no acute distress. HET: Head is normocephalic and atraumatic. Conjunctiva pink. Sclera anicteric. Neck: Supple without lymphadenopathy. Abdomen: Soft, diffuse tenderness, improved, nondistended with bowel sounds. No guarding or rigidity. Extremities: Normal skin color and turgor. No pedal edema Neurological: No focal deficits. Alert and oriented 3. - Labs CBC & Chem 7: 05/04/20 05:54 05/04/20 05:54 Labs: Abnormal Lab Results - Last 24 Hours (Table) 05/04/20 05/04/20 Range/Units 05:54 05:54 WBC 12.5 H (3.8-10.6) k/uL MCHC 30.8 L (31.0-37.0) g/dL Neutrophils # (Manual) 9.20 H (1.3-7.7) k/uL Monocytes # (Manual) 1.38 H (0-1.0) k/uL Sodium 136 L (137-145) mmol/L Potassium 3.3 L (3.5-5.1) mmol/L Creatinine 0.49 L (0.52-1.04) mg/dL Calcium 8.1 L (8.4-10.2) mg/dL C-Reactive Protein 128.6 H (<10.0) mg/L Total Protein 5.4 L (6.3-8.2) g/dL Albumin 2.5 L (3.5-5.0) g/dL Microbiology - Last 24 Hours (Table) 05/01/20 20:25 Blood Culture - Preliminary Blood No Growth after 48 hours 05/01/20 20:25 Blood Culture - Preliminary Blood No Growth after 48 hours 04/30/20 11:45 Blood Culture - Preliminary Blood No Growth after 72 hours 04/30/20 11:45 Blood Culture Gram Stain - Final Blood Blood Culture - Final Coagulase Negative Staph Assessment and Plan (1) Abdominal pain Narrative/Plan: A 44-year-old female patient who presented to the hospital with acute onset of severe diffuse abdominal pain that started 3 days ago associated with initially some constipation and subsequently took a laxative followed by diarrhea with rectal bleeding. No bowel movements for the last 2 days. She had 2 CAT scans within 24 hours apart that showed evidence of diffuse wall thickening in the terminal ileum as well as in the colon consistent with acute colitis most likely infectious in etiology. The patient is on empiric antibiotics with Cipro and Flagyl was started 2 days ago with leukocytosis has improved from 31,000 21,000. Most likely dealing with infectious colitis. Doubt inflammatory bowel disease. Patient with improved pain in her abdomen, nausea and vomiting has subsided. Current Visit: Yes Status: Acute Code(s): R10.9 - UNSPECIFIED ABDOMINAL PAIN SNOMED Code(s): 14399667 (2) Colitis Current Visit: Yes Status: Acute Code(s): K52.9 - NONINFECTIVE GASTROENT ERITIS AND COLITIS, UNSPECIFIED SNOMED Code(s): 09515634 Plan: 1. Supportive care 2. Advance diet as tolerated 3. Protonix 40 mg twice a day 4. Continue with broad-spectrum antibiotics 5. No plans for endoscopy at this time, patient to follow-up in 1-2 weeks. Patient may be discharged home from a gastroenterology standpoint Dr. You Carter I agree with the dictator's note, documented as a scribe by Mary Kay Hernandez.
[2020-05-04] MEDS ORDERED: POTASSIUM CHLORIDE ER 20 MEQ TAB.ER PO STA (11:42)
--- NOTE | 2020-05-04 11:45 | P.PN ---
Subjective Progress Note Date: 05/04/20 CHIEF COMPLAINT: Abdominal pain HISTORY OF PRESENT ILLNESS: Patient is being followed for her abdominal pain and enterocolitis. Patient reports improvement in her abdominal pain. She is having bowel movements. She did have some nausea this morning. She is tolerating regular diet. Afebrile. WBC 12.4 potassium 3.3 PHYSICAL EXAM: VITAL SIGNS: Reviewed. GENERAL: Well-developed in no acute distress. HEENT: No sclera icterus. Extraocular movements grossly intact. Moist buccal mucosa. Head is atraumatic, normocephalic. ABDOMEN: Soft. Nondistended. Mild diffuse tenderness NEUROLOGIC: Alert and oriented. Cranial nerves II through XII grossly intact. ASSESSMENT: 1. Abdominal pain 2. Enterocolitis improving PLAN: -Patient is stable from surgical standpoint for discharge -Patient follow-up with Dr. Perez in 1 week Physician Railroad Brake Repairer note has been reviewed by physician. Signing provider agrees with the documented findings, assessment, and plan of care. Objective - Vital Signs Vital signs: Vital Signs Temp 97.6 F 05/04/20 08:15 Pulse 86 05/04/20 08:15 Resp 18 05/04/20 08:15 BP 156/92 05/04/20 08:15 Pulse Ox 96 05/04/20 08:15 Intake & Output 05/03/20 05/04/20 05/04/20 18:59 06:59 18:59 Intake Total 540 100 Output Total 3 Balance 537 100 Intake: Oral 540 100 Output: Urine 3 Other: Voiding Method Toilet # Voids 2 - Labs CBC & Chem 7: 05/04/20 05:54 05/04/20 05:54 Labs: Abnormal Lab Results - Last 24 Hours (Table) 05/04/20 05/04/20 Range/Units 05:54 05:54 WBC 12.5 H (3.8-10.6) k/uL MCHC 30.8 L (31.0-37.0) g/dL Neutrophils # (Manual) 9.20 H (1.3-7.7) k/uL Monocytes # (Manual) 1.38 H (0-1.0) k/uL Sodium 136 L (137-145) mmol/L Potassium 3.3 L (3.5-5.1) mmol/L Creatinine 0.49 L (0.52-1.04) mg/dL Calcium 8.1 L (8.4-10.2) mg/dL C-Reactive Protein 128.6 H (<10.0) mg/L Total Protein 5.4 L (6.3-8.2) g/dL Albumin 2.5 L (3.5-5.0) g/dL Microbiology - Last 24 Hours (Table) 05/01/20 20:25 Blood Culture - Preliminary Blood No Growth after 48 hours 05/01/20 20:25 Blood Culture - Preliminary Blood No Growth after 48 hours 04/30/20 11:45 Blood Culture - Preliminary Blood No Growth after 72 hours 04/30/20 11:45 Blood Culture Gram Stain - Final Blood Blood Culture - Final Coagulase Negative Staph
--- NOTE | 2020-05-04 14:25 | P.DS ---
Providers Date of admission: 05/01/20 11:59 Expected date of discharge: 05/04/20 Attending physician: Medardo Desai MD Consults: 04/30/20 15:19 Consult Physician Urgent Consulting Provider: Zach Perez Consult Reason/Comments: Colitis, enteritis; hurts when I simply shake the bed, no rebound, no guard Do you want consulting provider notified?: Yes 05/01/20 12:14 Consult Physician Routine Consulting Provider: Kavya Carter Consult Reason/Comments: enteritis concern for inflammatory bowel disease Do you want consulting provider notified?: Yes Primary care physician: Physician Nonstaff Hospital Course: Discharge Diagnosis: Klebsiella UTI with sepsis Enterocolitis, multifocal Vaginal noemí Tobacco abuse Gram-positive bacteremia, contaminate with coag neg staph, ruled out Hospital Course: Patient is a 44-year-old female with a history of recurrent kidney stone, tobacco abuse, and prior cholecystectomy who presented with 2 days of hematuria and dysuria. In the ER she underwent an extensive evaluation. On arrival she was tachycardic with a pulse of 122. Laboratory analysis showed white blood cell count 31.8, hemoglobin 16.5, and urinalysis consistent with urinary tract infection. She underwent a CT which showed possible colitis and enteritis as well as diverticulosis and some possible inflammatory changes in the right lower quadrant. She was started on IV fluids and antibiotics. She is admitted for UTI with sepsis and enteritis. Surgery was consulted and recommended repeat CT abdomen and pelvis which showed worsening inflammatory changes in the lower abdomen and pelvis suspect she and of multifocal enterocolitis with infectious or inflammatory etiologies possible. Subsequently gastroenterology was consulted. Blood cultures came back with Coag neg staph which was determined to be a contaminate, she was treated with vanco while culture results were finalized. GI recommended outpatient colonoscopy in 2-4 weeks. Diet increased to full liquids on 05/03/20. Her urine came back positive for Klebsiella which was susceptible to Cipro and she was transitioned to Rocephin and Flagyl. She continued to improve. She was tolerating regular diet on the morning of 05/04/20 was subsequently stable for discharge. She'll complete an additional 7 days of Bactrim (as this should treat both her diverticulitis and urinary tract infection) and Flagyl. She was given a one-time dose of Diflucan during her hospital stay for vaginal noemí. I've given her a one-time repeat dose of Diflucan to administer at home after she completes her antibiotics. She will follow up with her primary care physician Dr. Huggins in 2-3 days, she will follow up with Dr. Carter on 05/17/20 at 11:15 AM to get a colonoscopy arranged. She has been cleared to return to work. Patient seen and examined at bedside. Tolerated diet, belly pain improving, normal BM yesterday, Vaginal irritation Vital signs reviewed and stable. General: non toxic, no distress, appears at stated age Derm: warm, dry Head: atraumatic, normocephalic, symmetric Eyes: EOMI, no lid lag, anicteric sclera Mouth: no lip lesion, mucus membranes moist Cardiovascular: S1S2 reg, no murmur, positive posterior tibial pulse bilateral, Lungs: CTA bilateral, no rhonchi, no rales , no accessory muscle use Abdominal: soft, +tender to palpation RUQ and RLQ, no guarding, no appreciable organomegaly Ext: no gross muscle atrophy, no edema, no contractures Neuro: CN II-XI grossly intact, no focal neuro deficits Psych: Alert, oriented, appropriate affect Genital: External candiad noted (Railroad Watchman present) A total of 35 minutes of time were spent preparing this complex discharge summary . Patient Condition at Discharge: Stable Plan - Discharge Summary Discharge Rx Participant: No New Discharge Prescriptions: New Sulfamethox-Tmp 800-160Mg [Bactrim DS 800-160 mg] 1 tab PO Q12HR #14 tab metroNIDAZOLE [Flagyl] 500 mg PO TID #21 tab Fluconazole [Diflucan] 150 mg PO ONCE #1 tab Continue HYDROcodone/APAP 10-325MG [[place] 10-325] 1 - 2 tab PO Q4H PRN PRN Reason: Pain Discontinued Phentermine HCl [Adipex-P] 37.5 mg PO DAILY Discharge Medication List HYDROcodone/APAP 10-325MG [[place] 10-325] 1 - 2 tab PO Q4H PRN 04/30/20 [History] Fluconazole [Diflucan] 150 mg PO ONCE #1 tab 05/04/20 [Rx] Sulfamethox-Tmp 800-160Mg [Bactrim DS 800-160 mg] 1 tab PO Q12HR #14 tab 05/04/20 [Rx] metroNIDAZOLE [Flagyl] 500 mg PO TID #21 tab 05/04/20 [Rx] Follow up Appointment(s)/Referral(s): Kavya Carter MD [STAFF PHYSICIAN] - 05/17/20 11:15 am CuauhtemocPhysician [Primary Care Provider] - 05/11/20 11:00 am Zach Perez MD [STAFF PHYSICIAN] - 1 Week Activity/Diet/Wound Care/Special Instructions: Activity: as tolerated Diet: soft, bland for 7 days Special Instructions: Follow-up with Dr. Carter for colonoscopy as scheduled Please call Dr Huggins's office if you need to reschedule Return to the ER if you get any fever, worsening abdominal pain or concerning symptoms. Discharge Disposition: HOME SELF-CARE
== END 2020-05-04 16:03 | disposition home or self-care (01) | DRG 872 ==
LOC: EC 11:05 → 6PED 14:25 → OBSVTOIN 05-01 11:59
PROVIDERS: ADMIT Internal Medicine; ATTEND Internal Medicine
DX: A41.89 Other specified sepsis (principal); N39.0 Urinary tract infection, site not specified; A09 Infectious gastroenteritis and colitis, unspecified; B96.1 Klebsiella pneumoniae [K. pneumoniae] as the cause of diseases classified elsewhere; E86.0 Dehydration; F17.200 Nicotine dependence, unspecified, uncomplicated; B37.3 Candidiasis of vulva and vagina; N20.0 Calculus of kidney; Z20.822 Contact with and (suspected) exposure to COVID-19; K57.50 Diverticulosis of both small and large intestine without perforation or abscess without bleeding; K59.00 Constipation, unspecified; Z90.49 Acquired absence of other specified parts of digestive tract; Z87.442 Personal history of urinary calculi
CPT/HCPCS: 36415; 74018; 74176; 74177; 80048; 80053; 81001; 81025; 82150; 82550; 82565; 83605; 83690; 83735; 85025; 85027; 86140; 87040; 87077; 87086; 87186; 87635; 96361; 96374; 96375; 96376; 99285

== ENCOUNTER 2020-11-14 05:49 | Inpatient (IN) | payer BC, OTHER ==
[2020-11-14] MEDS ORDERED: HYDROmorphone 0.5 MG/0.5 ML SYRINGE IVP STA (06:18)
[2020-11-14] MEDS ORDERED: KETOROLAC 15 MG/ML 1 ML VIAL IVP STA (06:18)
[2020-11-14] MEDS ORDERED: SODIUM CHLORIDE 0.9% 1,000 ML IV STA (06:18)
[2020-11-14] MEDS ORDERED: SODIUM CHLORIDE 0.9% 500 ML 500 ML IV STA (06:18)
[2020-11-14] MEDS ORDERED: ONDANSETRON 4 MG/2 ML VIAL IVP STA (06:18)
--- NOTE | 2020-11-14 06:35 | ED ---
General Adult HPI - General Chief complaint: Back Pain/Injury Stated complaint: poss kidney stone Time Seen by Provider: 11/14/20 06:00 Source: patient, RN notes reviewed Mode of arrival: ambulatory Limitations: no limitations - History of Present Illness Initial comments: 45-year-old presents emergency Department with chief complaint of left flank pain. Patient states started last last night. Patient states that she has a history kidney stones feels exactly same she does have slight nausea no vomiting no diarrhea no constipation or dysuria no hematuria denies any chance . Patient states that nothing makes the pain feel better or worse. - Related Data Home Medications Medication Instructions Recorded Confirmed HYDROcodone/APAP 10-325MG [[place] 1 - 2 tab PO Q4H PRN 04/30/20 11/14/20 10-325] Allergies Allergy/AdvReac Type Severity Reaction Status Date / Time No Known Allergies Allergy Verified 11/14/20 07:12 Review of Systems ROS Statement: Those systems with pertinent positive or pertinent negative responses have been documented in the HPI. ROS Other: All systems not noted in ROS Statement are negative. Past Medical History Past Medical History: No Reported History Additional Past Medical History / Comment(s): kidney stones. back pain History of Any Multi-Drug Resistant Organisms: None Reported Past Surgical History: Cholecystectomy Additional Past Surgical History / Comment(s): Kidney stones Past Anesthesia/Blood Transfusion Reactions: No Reported Reaction Past Psychological History: No Psychological Hx Reported Smoking Status: Current every day smoker Past Alcohol Use History: None Reported Past Drug Use History: None Reported - Past Family History Mother Family Medical History: No Reported History General Exam Limitations: no limitations General appearance: alert, in no apparent distress Head exam: Present: atraumatic, normocephalic, normal inspection Neck exam: Present: normal inspection, full ROM. Absent: tenderness, lymph adenopathy Respiratory exam: Present: normal lung sounds bilaterally. Absent: respiratory distress, wheezes, rales, rhonchi, stridor Cardiovascular Exam: Present: regular rate, normal rhythm, normal heart sounds. Absent: systolic murmur, diastolic murmur, rubs, gallop, clicks GI/Abdominal exam: Present: soft, tenderness (Mild left), normal bowel sounds. Absent: distended, guarding, rebound, rigid Back exam: Present: CVA tenderness (L). Absent: CVA tenderness (R) Neurological exam: Present: alert Course Vital Signs 11/14/20 11/14/20 05:56 07:31 Temperature 98.3 F Pulse Rate 99 81 Respiratory 18 18 Rate Blood Pressure 154/78 138/93 O2 Sat by Pulse 98 99 Oximetry Medical Decision Making - Medical Decision Making 45-year-old female presented for left flank pain. Patient's found to have 9-10 mm UVJ stone a while, complicating evidence of infection. I did discuss case with Dr. Sol urologist air pollution specialist recommends patient be on Rocephin will be admitted for further treatment - Lab Data Result diagrams: 11/14/20 06:25 11/14/20 06:25 Lab Results 11/14/20 11/14/20 11/14/20 Range/Units 06:25 06:25 06:25 WBC 12.4 H (3.8-10.6) k/uL RBC 5.05 (3.80-5.40) m/uL Hgb 15.5 (11.4-16.0) gm/dL Hct 47.9 H (34.0-46.0) % MCV 94.8 (80.0-100.0) fL MCH 30.8 (25.0-35.0) pg MCHC 32.5 (31.0-37.0) g/dL RDW 13.9 (11.5-15.5) % Plt Count 228 (150-450) k/uL MPV 9.2 Neutrophils % 69 % Lymphocytes % 19 % Monocytes % 6 % Eosinophils % 3 % Basophils % 1 % Neutrophils # 8.6 H (1.3-7.7) k/uL Lymphocytes # 2.4 (1.0-4.8) k/uL Monocytes # 0.8 (0-1.0) k/uL Eosinophils # 0.4 (0-0.7) k/uL Basophils # 0.1 (0-0.2) k/uL Sodium 139 (137-145) mmol/L Potassium 4.2 (3.5-5.1) mmol/L Chloride 105 (98-107) mmol/L Carbon Dioxide 27 (22-30) mmol/L Anion Gap 7 mmol/L BUN 14 (7-17) mg/dL Creatinine 0.78 (0.52-1.04) mg/dL Est GFR (CKD-EPI)AfAm >90 (>60 ml/min/1.73 sqM) Est GFR (CKD-EPI)NonAf >90 (>60 ml/min/1.73 sqM) Glucose 116 H (74-99) mg/dL Calcium 9.2 (8.4-10.2) mg/dL Total Bilirubin 0.3 (0.2-1.3) mg/dL AST 26 (14-36) U/L ALT 24 (4-34) U/L Alkaline Phosphatase 111 (38-126) U/L Total Protein 7.0 (6.3-8.2) g/dL Albumin 4.1 (3.5-5.0) g/dL Lipase 109 (23-300) U/L Urine Color Yellow Urine Appearance Turbid H (Clear) Urine pH 5.5 (5.0-8.0) Ur Specific [place] 1.019 (1.001-1.035) Urine Protein 1+ H (Negative) Urine Glucose (UA) Negative (Negative) Urine Ketones Negative (Negative) Urine Blood Moderate H (Negative) Urine Nitrite Positive H (Negative) Urine Bilirubin Negative (Negative) Urine Urobilinogen <2.0 (<2.0) mg/dL Ur Leukocyte Esterase Large H (Negative) Urine RBC 97 H (0-5) /hpf Urine WBC >182 H (0-5) /hpf Urine WBC Clumps Many H (None) /hpf Ur Squamous Epith Cells 11 H (0-4) /hpf Urine Bacteria Many H (None) /hpf Urine Mucus Many H (None) /hpf Disposition Clinical Impression: Urinary tract infection, Left ureteral calculus, Intractable abdominal pain Disposition: ADMITTED IP TO THIS [facility] Condition: Fair Referrals: Nonstaff,Physician [REFERRING] - 1-2 days
[2020-11-14 06:37] LABS: Basophils # (A) 0.1 k/uL (0-0.2); Basophils % (A) 1 %; Eosinophils # (A) 0.4 k/uL (0-0.7); Eosinophils % (A) 3 %; HCT 47.9 % (34.0-46.0); HGB 15.5 gm/dL (11.4-16.0); Lymphocytes # (A) 2.4 k/uL (1.0-4.8); Lymphocytes % (A) 19 %; MCH 30.8 pg (25.0-35.0); MCHC 32.5 g/dL (31.0-37.0); MCV 94.8 fL (80.0-100.0); Mean Platelet Volume 9.2; Monocytes # (A) 0.8 k/uL (0-1.0); Monocytes % (A) 6 %; Neutrophils # (A) 8.6 k/uL (1.3-7.7); Neutrophils % (A) 69 %; Platelet Count 228 k/uL (150-450); RBC 5.05 m/uL (3.80-5.40); RDW 13.9 % (11.5-15.5); WBC 12.4 k/uL (3.8-10.6)
[2020-11-14 06:48] LABS: ALT 24 U/L (4-34); AST 26 U/L (14-36); African American GFR (CKD) >90 (>60 ml/min/1.73 sqM); Albumin 4.1 g/dL (3.5-5.0); Alkaline Phosphatase 111 U/L (38-126); Anion Gap 7 mmol/L; Blood Urea Nitrogen 14 mg/dL (7-17); Calcium 9.2 mg/dL (8.4-10.2); Carbon Dioxide 27 mmol/L (22-30); Chloride 105 mmol/L (98-107); Glucose 116 mg/dL (74-99); Lipase 109 U/L (23-300); Non-African American GFR(CKD) >90 (>60 ml/min/1.73 sqM); Potassium 4.2 mmol/L (3.5-5.1); Sodium 139 mmol/L (137-145); Total Bilirubin 0.3 mg/dL (0.2-1.3)
[2020-11-14 06:50] LABS: Appearance,Urine Turbid (Clear); Bacteria,Urine Many /hpf; Bilirubin,Urine Negative (Negative); Blood,Urine Moderate (Negative); Color,Urine Yellow; Glucose,Urine (UA) Negative (Negative); Ketones,Urine Negative (Negative); Leukocyte Esterase,Urine Large (Negative); Mucus,Urine Many /hpf; Nitrite,Urine Positive (Negative); PH, Urine 5.5 (5.0-8.0); Protein,Urine 1+ (Negative); RBC,Urine 97 /hpf (0-5); Specific Gravity,Urine 1.019 (1.001-1.035); Squamous Epithelial Cell,Urine 11 /hpf (0-4); Urobilinogen,Urine <2.0 mg/dL (<2.0); WBC,Urine >182 /hpf (0-5)
--- NOTE | 2020-11-14 06:56 | XR ---
EXAMINATION TYPE: XR KUB DATE OF EXAM: 11/14/2020 6:47 AM CLINICAL HISTORY: History of renal stones with left flank pain. TECHNIQUE: Two Upright KUB images of the abdomen are obtained. COMPARISON: CT abdomen and pelvis May 01, 2020. Prior abdominal x-ray April 30, 2020 FINDINGS: Gas is seen in nondistended stomach. Scattered gas is seen in non-distended small bowel loo ps. Gas and fecal material is seen in non-distended colon. Stable roughly 9 mm right upper to mid dmitry e renal calculus. Stable upper pole 6 mm left renal calculus near left 12th rib. Cholecystectomy clip s redemonstrated. Lung bases are clear. Mild to moderate acetabular spurring of both hips redemonstra fany. No free air. IMPRESSION: Overall nonobstructive bowel gas pattern. Likely stable nonobstructing bilateral renal calculi.
[2020-11-14] MEDS ORDERED: HYDROmorphone 1 MG/ML 1 ML SYRINGE IVP STA (07:11)
--- NOTE | 2020-11-14 07:51 | CT ---
EXAMINATION TYPE: CT abdomen pelvis wo con DATE OF EXAM: 11/14/2020 HISTORY: Left flank pain, history of renal stones CT DLP: 808.7 mGycm. Automated Exposure Control for Dose Reduction was Utilized. TECHNIQUE: CT scan of the abdomen and pelvis is performed without oral or IV contrast. COMPARISON: CT abdomen and pelvis May 01, 2020 FINDINGS: Within the limitations of a non-contrast study, the following observations are made. LUNG BASES: No significant abnormality is appreciated. LIVER/GB: Cholecystectomy clips are redemonstrated. PANCREAS: No significant abnormality is seen. SPLEEN: No significant abnormality is seen. ADRENALS: No significant abnormality is seen. KIDNEYS:. Stable 9 mm nonobstructing calculus right kidney anteriorly upper to mid pole level. There is better visualized 1 to 2 mm nonobstructing calculus right kidney upper pole level coronal image 65 . No right-sided hydronephrosis. Confirmation of stable 6 mm nonobstructing calculus upper pole left kidney axial image 39. New or better visualized 3-5 smaller nonobstructing calculi measuring under 2 mm in size but also new 4 mm stone lower pole of the left kidney coronal image 57. New moderate to se mariajose pyelocaliectasis and hydroureter secondary to 9-10 mm distal left ureter calculus right before U VJ on axial image 131. Some asymmetric cortical thinning left kidney redemonstrated. BOWEL: Scattered colonic diverticula greatest at level of sigmoid colon. No CT evidence for acute div erticulitis. Poor distention of stomach makes evaluation at this level suboptimal GENITAL ORGANS: Anteverted uterus. LYMPH NODES: No greater than 1cm abdominal or pelvic lymph nodes are appreciated. OSSEOUS STRUCTURES: No significant abnormality is seen. OTHER: No significant additional abnormality is seen. IMPRESSION: New left-sided nephrolithiasis. New [id number] left-sided hydronephrosis due to o bstructing 9 to 10 mm calculus just before left UVJ.
[2020-11-14] MEDS ORDERED: HYDROmorphone 0.5 MG/0.5 ML SYRINGE IVP PRN (08:14)
[2020-11-14] MEDS ORDERED: NALOXONE 0.4 MG/ML 1 ML VIAL IV PRN (08:14)
[2020-11-14] MEDS ORDERED: ONDANSETRON 4 MG/2 ML VIAL IVP PRN (08:14)
[2020-11-14] MEDS ORDERED: KETOROLAC 15 MG/ML 1 ML VIAL IVP PRN (08:14)
[2020-11-14] MEDS: SODIUM CHLORIDE 0.9% 1,000 ML IV SCH ×3 (08:23→23:09)
[2020-11-14] MEDS: HYDROmorphone 1 MG/ML 1 ML SYRINGE IVP PRN ×5 (08:36→20:59)
--- NOTE | 2020-11-14 14:57 | P.GSHP ---
History of Present Illness H&P Date: 11/14/20 this is a 45-year-old female that presents to the hospital with left flank pain. She has history of recurrent kidney stones. Denies any fevers, chills, dysuria, or gross hematuria. She has underwent multiple previous surgeries before for her kidney stones, none of her surgeries are at [place]. She underwent a CT abdomen and pelvis on presentation that showed evidence of 1 cm stone in the left UVJ, and bilateral renal stones. Her UA was concerning for UTI. On evaluation this a.m. she indicated her pain has improved, but still symptomatic. she has history of poor tolerance for ureteral stents and refuses a ureteral stent - Constitutional Constitutional: Denies chills, Denies fever - EENT Eyes: denies blurred vision, denies pain Ears, nose, mouth and throat: Reports as per HPI - Cardiovascular Cardiovascular: Denies chest pain, Denies shortness of breath - Respiratory Respiratory: Denies cough, Denies 7 - Gastrointestinal Gastrointestinal: Reports abdominal pain - Genitourinary (Female) Genitourinary: Reports flank pain, Reports kidney stones - Genitourinary (Male) Genitourinary: Reports flank pain, Reports kidney stones - Musculoskeletal Musculoskeletal: Denies myalgias - Endocrine Endocrine: Denies fatigue, Denies weight change Past Medical History Past Medical History: No Reported History Additional Past Medical History / Comment(s): kidney stones. back pain History of Any Multi-Drug Resistant Organisms: None Reported Past Surgical History: Cholecystectomy Additional Past Surgical History / Comment(s): lithotripsy Past Anesthesia/Blood Transfusion Reactions: No Reported Reaction Past Psychological History: No Psychological Hx Reported Smoking Status: Current every day smoker Past Alcohol Use History: None Reported Past Drug Use History: None Reported - Past Family History Mother Family Medical History: Cancer Father Family Medical History: Cancer Medications and Allergies Home Medications Medication Instructions Recorded Confirmed Type HYDROcodone/APAP 10-325MG [[place] 1 - 2 tab PO Q4H PRN 04/30/20 11/14/20 History 10-325] Allergies Allergy/AdvReac Type Severity Reaction Status Date / Time No Known Allergies Allergy Verified 11/14/20 07:12 Surgical - Exam Vital Signs Temp Pulse Resp BP Pulse Ox 98.3 F 99 18 154/78 98 11/14/20 05:56 11/14/20 05:56 11/14/20 05:56 11/14/20 05:56 11/14/20 05:56 - General moderate distress, moderate pain - Eyes PERRL, normal ocular movement - ENT normal nares, normal mucosa - Respiratory normal expansion, normal respiratory effort - Abdomen Abdomen: soft, non tender - Psychiatric oriented to time, oriented to person, oriented to place Results - Labs 11/14/20 06:25 11/14/20 06:25 Abnormal Lab Results - Last 24 Hours (Table) 11/14/20 11/14/20 11/14/20 Range/Units 06:25 06:25 06:25 WBC 12.4 H (3.8-10.6) k/uL Hct 47.9 H (34.0-46.0) % Neutrophils # 8.6 H (1.3-7.7) k/uL Glucose 116 H (74-99) mg/dL Urine Appearance Turbid H (Clear) Urine Protein 1+ H (Negative) Urine Blood Moderate H (Negative) Urine Nitrite Positive H (Negative) Ur Leukocyte Esterase Large H (Negative) Urine RBC 97 H (0-5) /hpf Urine WBC >182 H (0-5) /hpf Urine WBC Clumps Many H (None) /hpf Ur Squamous Epith Cells 11 H (0-4) /hpf Urine Bacteria Many H (None) /hpf Urine Mucus Many H (None) /hpf Microbiology - Last 24 Hours (Table) 11/14/20 06:25 Urine Culture - Preliminary Urine,Voided Diabetes panel 11/14/20 Range/Units 06:25 Sodium 139 (137-145) mmol/L Potassium 4.2 (3.5-5.1) mmol/L Chloride 105 (98-107) mmol/L Carbon Dioxide 27 (22-30) mmol/L BUN 14 (7-17) mg/dL Creatinine 0.78 (0.52-1.04) mg/dL Glucose 116 H (74-99) mg/dL Calcium 9.2 (8.4-10.2) mg/dL AST 26 (14-36) U/L ALT 24 (4-34) U/L Alkaline Phosphatase 111 (38-126) U/L Total Protein 7.0 (6.3-8.2) g/dL Albumin 4.1 (3.5-5.0) g/dL Calcium panel 11/14/20 Range/Units 06:25 Calcium 9.2 (8.4-10.2) mg/dL Albumin 4.1 (3.5-5.0) g/dL Pituitary panel 11/14/20 Range/Units 06:25 Sodium 139 (137-145) mmol/L Potassium 4.2 (3.5-5.1) mmol/L Chloride 105 (98-107) mmol/L Carbon Dioxide 27 (22-30) mmol/L BUN 14 (7-17) mg/dL Creatinine 0.78 (0.52-1.04) mg/dL Glucose 116 H (74-99) mg/dL Calcium 9.2 (8.4-10.2) mg/dL Adrenal panel 11/14/20 Range/Units 06:25 Sodium 139 (137-145) mmol/L Potassium 4.2 (3.5-5.1) mmol/L Chloride 105 (98-107) mmol/L Carbon Dioxide 27 (22-30) mmol/L BUN 14 (7-17) mg/dL Creatinine 0.78 (0.52-1.04) mg/dL Glucose 116 H (74-99) mg/dL Calcium 9.2 (8.4-10.2) mg/dL Total Bilirubin 0.3 (0.2-1.3) mg/dL AST 26 (14-36) U/L ALT 24 (4-34) U/L Alkaline Phosphatase 111 (38-126) U/L Total Protein 7.0 (6.3-8.2) g/dL Albumin 4.1 (3.5-5.0) g/dL Assessment and Plan Assessment: this a 45-year-old female presents hospital with a 1 cm left UVJ stone, and bilateral nonobstructing stones. She had a UTI on presentation, no evidence of sepsis at this time. Discussed with her given the size of her stone and her UTI recommend proceeding with stent placement, she refused. She has history of poor tolerance to ureteral stent. Discussed with her the risk of progression to sepsis, and she if she does become septic we will need to proceed with stent placement, she was agreeable with that plan. Discussed with her I cannot do a primary ureteroscopy given her UTI. At this time we'll admit her for IV a ntibiotics, discussed with her once cultures finalize she can be discharged based on culture susceptibility. We'll plan on doing an outpatient ureteroscopy once her UTI is treated
[2020-11-14 21:15] LABS: HGB 13.7 gm/dL (11.4-16.0); Hypochromasia Slight; Lymphocytes % (A) 17 %; MCH 31.2 pg (25.0-35.0); MCV 97.6 fL (80.0-100.0); Mean Platelet Volume 9.1; Monocytes % (A) 6 %; Neutrophils % (A) 73 %; Platelet Count 163 k/uL (150-450); WBC 12.9 k/uL (3.8-10.6)
[2020-11-14 21:16] LABS: Basophils # (A) 0.1 k/uL (0-0.2); Basophils % (A) 1 %; Eosinophils # (A) 0.3 k/uL (0-0.7); Eosinophils % (A) 2 %; Lymphocytes # (A) 2.1 k/uL (1.0-4.8); Monocytes # (A) 0.8 k/uL (0-1.0); Neutrophils # (A) 9.4 k/uL (1.3-7.7)
[2020-11-14 21:27] LABS: African American GFR (CKD) >90 (>60 ml/min/1.73 sqM); Anion Gap 5 mmol/L; Blood Urea Nitrogen 13 mg/dL (7-17); Calcium 8.5 mg/dL (8.4-10.2); Carbon Dioxide 24 mmol/L (22-30); Chloride 108 mmol/L (98-107); Glucose 96 mg/dL (74-99); Non-African American GFR(CKD) >90 (>60 ml/min/1.73 sqM); Sodium 137 mmol/L (137-145)
[2020-11-14 21:34] LABS: Potassium 4.4 mmol/L (3.5-5.1)
[2020-11-15] MEDS: HYDROmorphone 1 MG/ML 1 ML SYRINGE IVP PRN ×7 (00:03→23:29)
[2020-11-15] MEDS: SODIUM CHLORIDE 0.9% 1,000 ML IV SCH ×3 (07:44→23:29)
[2020-11-15] MEDS ORDERED: FLUCONAZOLE 150 MG TAB PO STA (07:50)
[2020-11-15 10:17] LABS: Basophils # (A) 0.1 k/uL (0-0.2); Basophils % (A) 1 %; Eosinophils # (A) 0.3 k/uL (0-0.7); Eosinophils % (A) 3 %; HCT 41.6 % (34.0-46.0); HGB 12.9 gm/dL (11.4-16.0); Hypochromasia Slight; Lymphocytes # (A) 1.8 k/uL (1.0-4.8); Lymphocytes % (A) 19 %; MCH 30.4 pg (25.0-35.0); MCHC 31.1 g/dL (31.0-37.0); MCV 97.8 fL (80.0-100.0); Mean Platelet Volume 9.4; Monocytes # (A) 0.6 k/uL (0-1.0); Monocytes % (A) 6 %; Neutrophils # (A) 6.6 k/uL (1.3-7.7); Neutrophils % (A) 70 %; Platelet Count 176 k/uL (150-450); RBC 4.25 m/uL (3.80-5.40); RDW 13.7 % (11.5-15.5); WBC 9.5 k/uL (3.8-10.6)
--- NOTE | 2020-11-15 14:12 | P.PN ---
Subjective Progress Note Date: 11/15/20 no acute overnight, remains afebrile. Pain is controlled, urine culture still pending Objective - Vital Signs Vital signs: Vital Signs Temp 97.8 F 11/15/20 08:26 Pulse 78 11/15/20 08:26 Resp 17 11/15/20 08:26 BP 158/81 11/15/20 08:26 Pulse Ox 96 11/15/20 08:26 Intake & Output 11/14/20 11/15/20 11/15/20 18:59 06:59 18:59 Intake Total 1450 Output Total 400 300 Balance 1050 -300 Weight 86.9 kg Intake: Intake, IV Titration 910 Amount Sodium Chloride 0.9% 1, 910 000 ml @ 130 mls/hr IV . Q7H42M [facility] Rx#:[id number] Oral 540 Output: Urine 400 300 Other: Voiding Method Toilet Toilet Toilet # Voids 2 1 - Labs CBC & Chem 7: 11/15/20 09:43 11/14/20 21:02 Labs: Abnormal Lab Results - Last 24 Hours (Table) 11/14/20 11/14/20 Range/Units 21:02 21:02 WBC 12.9 H (3.8-10.6) k/uL Neutrophils # 9.4 H (1.3-7.7) k/uL Chloride 108 H (98-107) mmol/L Microbiology - Last 24 Hours (Table) 11/14/20 06:25 Urine Culture - Preliminary Urine,Voided Assessment and Plan Assessment: this a 45-year-old female presents hospital with a 1 cm left UVJ stone, and b ilateral nonobstructing stones. She had a UTI on presentation, no evidence of sepsis at this time. Discussed with her given the size of her stone and her UTI recommend proceeding with stent placement, she refused. She has history of poor tolerance to ureteral stent. Discussed with her the risk of progression to sepsis, and she if she does become septic we will need to proceed with stent placement, she was agreeable with that plan. Discussed with her I cannot do a primary ureteroscopy given her UTI. At this time we'll admit her for IV antibiotics, discussed with her once cultures finalize she can be discharged based on culture susceptibility. We'll plan on doing a ureteroscopy once her UTI is treated. -continue IV antibiotics -Follow up on final urine culture
[2020-11-16 02:22] VITALS: RESP 18
[2020-11-16] MEDS: HYDROmorphone 1 MG/ML 1 ML SYRINGE IVP PRN ×2 (03:08→06:17)
[2020-11-16] MEDS: SODIUM CHLORIDE 0.9% 1,000 ML IV SCH (06:18)
[2020-11-16 09:04] VITALS: BP 159/83; PULSE 82; TEMP 97.7
--- NOTE | 2020-11-16 14:49 | P.DS ---
Providers Date of admission: 11/14/20 08:06 Attending physician: Damian Sol MD Primary care physician: Stated None Hospital Course: 45-year-old female with history of 9 mm left distal ureteral stone, a UTI. She was admitted to the hospital due to intractable pain and UTI. Option of ureteral stent was discussed with her, she declined given her poor tolerance of previous stents. She passed her stone on November 15. Her urine culture finalized on November 16, and she was discharged home on Keflex. At time of discharge she was tolerating a diet, had no pain. She was discharged home and advised to follow up in 1-2 weeks Patient Condition at Discharge: Fair Plan - Discharge Summary Discharge Rx Participant: No New Discharge Prescriptions: New Cephalexin [Keflex] 500 mg PO Q8HR #15 cap No Action HYDROcodone/APAP 10-325MG [[place] 10-325] 1 - 2 tab PO Q4H PRN PRN Reason: Pain Discharge Medication List HYDROcodone/APAP 10-325MG [[place] 10-325] 1 - 2 tab PO Q4H PRN 04/30/20 [History] Cephalexin [Keflex] 500 mg PO Q8HR #15 cap 11/16/20 [Rx] Follow up Appointment(s)/Referral(s): Damian Sol MD [STAFF PHYSICIAN] - 1 Week (Dr. Salgado office will call you to schedule your appointment. ) Nonstaff,Physician [REFERRING] - 1-2 days Patient Instructions/Handouts: Urinary Tract Infection in Women (DC) Activity/Diet/Wound Care/Special Instructions: FOLLOW UP WITH DR SOL DIRECTED BY OFFICE, SOONER IF WORSENING PROBLEMS OR CONCERNS. NO STRENUOS ACTIVITY, LIGHT ACTIVITY. Discharge Disposition: HOME SELF-CARE
== END 2020-11-16 13:21 | disposition home or self-care (01) | DRG 694 ==
LOC: EC 05:49 → 6PED 08:06
PROVIDERS: ADMIT Urology; ATTEND Urology
DX: N20.2 Calculus of kidney with calculus of ureter (principal); N39.0 Urinary tract infection, site not specified; Z87.442 Personal history of urinary calculi; F17.200 Nicotine dependence, unspecified, uncomplicated
CPT/HCPCS: 36415; 74018; 74176; 80048; 80053; 81001; 82365; 83690; 85025; 87040; 87077; 87086; 87186; 96361; 96374; 96375; 96376; 99285

== ENCOUNTER 2021-05-11 05:52 | Emergency (ER) | payer BC, OTHER ==
[2021-05-11 05:58] VITALS: PULSE 76; TEMP 98
[2021-05-11] MEDS ORDERED: IBUPROFEN 800 MG TAB PO STA (06:04)
[2021-05-11] MEDS ORDERED: HYDROcodone/APAP 5-325MG 1 EACH TAB PO STA (06:05)
--- NOTE | 2021-05-11 06:10 | ED ---
General Adult HPI - General Source: patient, RN notes reviewed, old records reviewed Mode of arrival: ambulatory - History of Present Illness -: hour(s) (1) Location: left, upper extremity (wrist and elbow) Radiation: proximal (upper arm) Severity scale (1-10): 9 Quality: sharp, constant Consistency: constant Improves with: none Associated Symptoms: denies other symptoms Treatments Prior to Arrival: none <Bryant Botello - Last Filed: 05/11/21 07:12> <Juan Garcia - Last Filed: 05/11/21 13:40> - General Chief complaint: Extremity Injury, Upper Stated complaint: Fall, LT arm injury Time Seen by Provider: 05/11/21 06:04 - History of Present Illness Initial comments: Well-appearing 45-year-old female presents to the emergency room after a fall on an outstretched left arm. Patient states that she has pain to her left wrist and elbow that radiates to her upper arm. She fractured her left arm in the past. She is a smoker. She states pain is 9 out of 10. (Bryant Botello) - Related Data Home Medications Medication Instructions Recorded Confirmed HYDROcodone/APAP 10-325MG [[place] 1 - 2 tab PO Q4H PRN 04/30/20 11/14/20 10-325] Previous Rx's Medication Instructions Recorded Cephalexin [Keflex] 500 mg PO Q8HR #15 cap 11/16/20 HYDROcodone/APAP 5-325MG [[place] 1 tab PO Q6HR PRN 3 Days #12 tab 05/11/21 5-325] Ibuprofen [Motrin] 800 mg PO Q6HR #30 tab 05/11/21 Allergies Allergy/AdvReac Type Severity Reaction Status Date / Time No Known Allergies Allergy Verified 05/11/21 05:58 Review of Systems ROS Other: All systems not noted in ROS Statement are negative. <Bryant Botello - Last Filed: 05/11/21 07:12> ROS Other: All systems not noted in ROS Statement are negative. <Juan Garcia - Last Filed: 05/11/21 13:40> ROS Statement: Those systems with pertinent positive or pertinent negative responses have been documented in the HPI. Past Medical History Past Medical History: No Reported History Additional Past Medical History / Comment(s): kidney stones. back pain History of Any Multi-Drug Resistant Organisms: None Reported Past Surgical History: Cholecystectomy Additional Past Surgical History / Comment(s): lithotripsy Past Anesthesia/Blood Transfusion Reactions: No Reported Reaction Past Psychological History: No Psychological Hx Reported Smoking Status: Current every day smoker Past Alcohol Use History: None Reported Past Drug Use History: None Reported - Past Family History Mother Family Medical History: Cancer Father Family Medical History: Cancer <Bryant Botello Last Filed: 05/11/21 07:12> General Exam General appearance: alert, in no apparent distress Eye exam: Present: normal appearance Respiratory exam: Present: wheezes (Inspiratory and expiratory). Absent: rales, rhonchi, stridor, accessory muscle use, decreased breath sounds Cardiovascular Exam: Present: regular rate Left Shoulder Exam: Absent: tenderness Upper Arm exam: Absent: tenderness Elbow exam: Present: tenderness, swelling. Absent: laceration, ecchymosis Forearm Wrist exam: Present: tenderness, swelling. Absent: abrasion, laceration, ecchymosis Hand Wrist exam: Present: tenderness, swelling. Absent: laceration, ecchymosis Neurosensory exam: Present: 2-point discrimination, radial nerve intact, ulnar nerve intact, median nerve intact Vascular: Present: normal capillary refill, radial pulse Neurological exam: Present: alert, oriented X3 Psychiatric exam: Present: normal affect, normal mood Skin exam: Present: warm, dry, normal color. Absent: cyanosis <Bryant Botello Last Filed: 05/11/21 07:12> Course Vital Signs 05/11/21 05/11/21 05:55 07:22 Temperature 98 F 98 F Pulse Rate 76 76 Respiratory 19 22 Rate Blood Pressure 135/73 134/72 O2 Sat by Pulse 98 97 Oximetry Procedures - Orthopedic Splinting/Casting Injury #1 Side: left Upper Extremity Injury Location: long arm, wrist Upper Extremity Immobilizer: posterior splint, Haroldo wrap, synthetic pre-padded splint <Bryant Botello Last Filed: 05/11/21 07:12> Medical Decision Making <Bryant Botello Last Filed: 05/11/21 07:12> - Medical Decision Making 45-year-old female presents after a fall on an outstretched arm less than 1 hour prior to arrival. Radial and ulnar pulses are present. Capillary refill is less than 2 seconds. Patient was given pain medication in the emergency room X-ray of the left wrist shows an acute slightly impacted transverse and oblique fracture of the distal radius. There is a nondisplaced fracture of the left distal radial metaphysis. There is cortical buckling on the lateral aspect with no dislocation. The distal ulna is intact. X-ray of the left elbow shows no fracture. Patient was placed in a long arm posterior splint and sling. She has good capillary refill and is neurovascularly intact prior to and post-splinting. She will be referred to orthopedics and a prescription for Motrin and [place] for pain. Case discussed with Dr. Garcia. (Bryant Botello) Disposition Is patient prescribed a controlled substance at d/c from ED?: Yes When asked, does pt state using other controlled substances?: No If prescribed controlled substance>3 days was MAPS reviewed?: Prescribed <3 Days If opioid is for acute pain is fill amount 7 days or less?: Yes If Rx opioid, was Start Talking consent form obtained?: Yes Time of Disposition: 07:04 <Bryant Botello - Last Filed: 05/11/21 07:12> <Juan Garcia - Last Filed: 05/11/21 13:40> Clinical Impression: Radius distal fracture Disposition: HOME SELF-CARE Condition: Good Instructions (If sedation given, give patient instructions): Arm Fracture in Adults (ED) Additional Instructions: Rest, ice, elevate and take Motrin and [place] as prescribed for pain. Keep splint in place until seen by orthopedics. Follow-up with orthopedics next week. Prescriptions: Ibuprofen [Motrin] 800 mg PO Q6HR #30 tab HYDROcodone/APAP 5-325MG [[place] 5-325] 1 tab PO Q6HR PRN 3 Days #12 tab PRN Reason: Pain Referrals: None,Stated [Primary Care Provider] - 1-2 days Luis Melo PAC [PHYSICIAN DRIVER LICENSE TECHNICIAN] - 1-2 days
--- NOTE | 2021-05-11 06:35 | XR ---
EXAMINATION TYPE: XR forearm LT DATE OF EXAM: 05/11/2021 COMPARISON: NONE HISTORY: Fall. Pain TECHNIQUE: 2 view FINDINGS: There is nondisplaced fracture of the distal radial metaphysis. There is cortical buckling on the lateral aspect. There is no dislocation. Distal ulna is intact. Elbow joint is intact. IMPRESSION: Acute nondisplaced distal radius fracture.
--- NOTE | 2021-05-11 06:36 | XR ---
EXAMINATION TYPE: XR wrist complete LT DATE OF EXAM: 05/11/2021 COMPARISON: NONE HISTORY: Fall. Pain TECHNIQUE: 4 views FINDINGS: There is acute slightly impacted transverse and oblique fracture of the distal radius. Ther e is cortical buckling. The distal ulna is intact. Carpal bones are intact. Metacarpals are intact. IMPRESSION: Acute slightly impacted fracture distal radius.
--- NOTE | 2021-05-11 06:39 | XR ---
EXAMINATION TYPE: XR elbow complete LT DATE OF EXAM: 05/11/2021 COMPARISON: NONE HISTORY: Fall. Pain TECHNIQUE: 3 views FINDINGS: There is no evidence of fracture nor dislocation. Elbow joint spaces appear normal. There i s no sign of elbow joint effusion. IMPRESSION: Negative left elbow exam. No fracture.
[2021-05-11 07:23] VITALS: BP 134/72; RESP 22
== END 2021-05-11 07:23 | disposition home or self-care (01) ==
LOC: EC 05:52
DX: S52.502A Unspecified fracture of the lower end of left radius, initial encounter for closed fracture (principal); F17.200 Nicotine dependence, unspecified, uncomplicated; Z87.442 Personal history of urinary calculi; Z90.49 Acquired absence of other specified parts of digestive tract; W18.30XA Fall on same level, unspecified, initial encounter
CPT/HCPCS: 29105; 99283

== ENCOUNTER 2021-05-16 10:59 | Day surgery (SDC) | payer BC, OTHER ==
[2021-05-15 09:46] VITALS: BMI 33.6
--- NOTE | 2021-05-15 13:30 | P.HPOR ---
History of Present Illness H&P Date: 05/15/21 Chief Complaint: Left distal radius fracture with DRUJ injury Subjective: This is a 45 year old female that presents today for initial evaluation regarding a left wrist injury that occurred on 05/11/21 when she fell at home on her driveway on to her left arm. She was seen at [facility] ED where x-rays were taken and she was placed in a splint. She has had pain and swelling since her injury around the wrist and forearm area. She does have a history of a complex left elbow injury that she states happened with she was 1 years old that required prolonged cast immobilization and that shes had a "crooked elbow" ever since. She denies any prior injury to the wrist. Physical Examination: LUE: AIN/PIN/Radial/Ulnar/Median motor intact. Radial/Ulnar/Median SILT. Pain swelling around wrist and distal forearm. NTTP over radial head. Cubital varus alignment of left elbow. Elbow ROM 0-120. DRUJ shuck not able to be tolerated due to pain. Imaging: X-Rays of the left wrist demonstrate a non-displaced distal radius fracture, dorsal lunate facet comminution is present, non displaced fracture line extends into meta-diaphyseal region. Overall volar tilt, radial height and inclination preserved. Widening of left DRUJ present, comparison x-rays to the non-injured right wrist demonstrate increased widening on the left side, measured widening in 3.7mm. X-rays of the left elbow taken in the ED demonstrate no acute fracture/dislocation. Chronic distal humerus malunion present. Impression: 1.) Left distal radius fracture, intra-articular, non displaced. 2.) Left DRUJ injury with widening. Plan: Diagnosis and treatment options were discussed with the patient. On wrist comparison films she has obvious widening of her DRUJ of the left wrist in addition to her non displaced distal radius fracture that appears to be an acute injury. I recommend surgical intervention which will consist of stressing the DRUJ under anesthesia with possible DRUJ pinning with additional distal radius ORIF vs CRPP. Risks and benefits of surgery including bleeding, infection, damage to surrounding tissue, need for further surgery, stiffness were discussed and the patient wished to go forward with surgery. She is placed in a wrist splint in office today and is to remain non-weight bearing. Pre op labs, EKG will be ordered. -Tiago Noriega DO Orthopedic Hand/Upper Extremity Surgeon Past Medical History Past Medical History: No Reported History Additional Past Medical History / Comment(s): kidney stones. back pain. FX LT WRIST 05/11/21 History of Any Multi-Drug Resistant Organisms: None Reported Past Surgical History: Cholecystectomy Additional Past Surgical History / Comment(s): lithotripsy Past Anesthesia/Blood Transfusion Reactions: No Reported Reaction Smoking Status: Current every day smoker - Past Family History Mother Family Medical History: Cancer Father Family Medical History: Cancer Medications and Allergies Home Medications Medication Instructions Recorded Confirmed Type Cephalexin [Keflex] 500 mg PO Q8HR #15 cap 11/16/20 05/15/21 Rx HYDROcodone/APAP 5-325MG [[place] 1 tab PO Q6HR PRN 3 Days #12 tab 05/11/21 05/15/21 Rx 5-325] Ibuprofen [Motrin] 800 mg PO Q6HR #30 tab 05/11/21 05/15/21 Rx Allergies Allergy/AdvReac Type Severity Reaction Status Date / Time No Known Allergies Allergy Verified 05/15/21 09:30 Physical Examination Osteopathic Statement: *. No significant issues noted on an osteopathic structural exam other than those noted in the History and Physical/Consult.
[~2021-05-16 10:59] MED LIST: ONDANSETRON 4 MG/2 ML VIAL ONE
[2021-05-16] MEDS ORDERED: LACTATED RINGERS 1,000 ML IV ONE (11:43)
[2021-05-16] MEDS ORDERED: fentaNYL (PF) 50 MCG/ML 2 ML AMP IVP ONE (11:46)
[2021-05-16] MEDS ORDERED: MIDAZOLAM 2 MG/2 ML VIAL IVP ONE (11:46)
[2021-05-16] MEDS ORDERED: ONDANSETRON 4 MG/2 ML VIAL IVP ONE (12:00)
[2021-05-16] MEDS ORDERED: DEXAMETHASONE SOD PHOSPHATE 4 MG/ML 1 ML VIAL IVP ONE (12:00)
[2021-05-16 12:05] LABS: Basophils # (A) 0.1 k/uL (0-0.2); Basophils % (A) 1 %; Eosinophils # (A) 0.4 k/uL (0-0.7); Eosinophils % (A) 3 %; HCT 45.9 % (34.0-46.0); Lymphocytes # (A) 2.6 k/uL (1.0-4.8); Lymphocytes % (A) 22 %; MCH 30.8 pg (25.0-35.0); MCHC 32.6 g/dL (31.0-37.0); MCV 94.4 fL (80.0-100.0); Mean Platelet Volume 9.2; Monocytes # (A) 0.5 k/uL (0-1.0); Monocytes % (A) 4 %; Neutrophils # (A) 7.7 k/uL (1.3-7.7); Neutrophils % (A) 68 %; Platelet Count 234 k/uL (150-450); RBC 4.86 m/uL (3.80-5.40); WBC 11.4 k/uL (3.8-10.6)
[2021-05-16 12:42] LABS: Potassium 4.6 mmol/L (3.5-5.1)
[2021-05-16] MEDS ORDERED: fentaNYL (PF) 50 MCG/ML 2 ML AMP ONE (12:58)
[2021-05-16] MEDS ORDERED: SUCCINYLCHOLINE CHLORIDE 100 MG/5 ML SYR IV ONE (12:58)
[2021-05-16] MEDS ORDERED: LIDOCAINE 1% INJ 10MG/ML (20 ML MDV) ONE (12:58)
[2021-05-16] MEDS ORDERED: ROPIVACAINE 5 MG/ML 30 ML VIAL ONE (12:58)
[2021-05-16] MEDS ORDERED: DEXAMETHASONE SOD PHOSPHATE 4 MG/ML 1 ML VIAL ONE (12:58)
[2021-05-16] MEDS ORDERED: MIDAZOLAM 2 MG/2 ML VIAL ONE (12:58)
[2021-05-16] MEDS ORDERED: PROPOFOL 10 MG/ML 20 ML VIAL IV ONE (12:58)
[2021-05-16 13:57] VITALS: TEMP 97.7
[2021-05-16] MEDS ORDERED: HYDROmorphone 0.5 MG/0.5 ML SYRINGE IVP ONE ×3 (14:25→14:50)
--- NOTE | 2021-05-16 14:42 | P.ANPRN ---
Procedure Note - Anesthesia - Nerve Block Performed Left Supraclavicular Single Time Out Performed: Yes Date of Procedure: 05/16/21 Procedure Start Time: 11:45 Procedure Stop Time: 11:52 Location of Patient: PreOp Indication: Requested by Surgeon Specifically requested for management of pain by DrYesi: Tiago Noriega Sedation Type: Sedate with meaningful contact maintained Preparation: Sterile Prep Position: Supine Needle Types: Pajunk Needle Gauge: 21 Ultrasound used to visualize needle placement: Yes Ultrasound used to observe medication spread: Yes Injectate: 0.5% Ropivacaine (see comment for volume) (20 ml + 4 mg Dexamethasone) Blood Aspirated: No Pain Paresthesia on Injection Noted: No Resistance on Injection: Normal Image Stored and Saved: Yes Events: Uneventful and Well Tolerated
[2021-05-16 15:21] VITALS: BP 159/75; PULSE 90; RESP 18
--- NOTE | 2021-05-16 21:59 | P.OP ---
Date of Procedure: 05/16/21 Preoperative Diagnosis: 1.) Right intra-articular distal radius fracture. 2.) Right DRUJ widening, concerning for acute DRUJ injury. Postoperative Diagnosis: 1.) Right intra-articular distal radius fracture, nondisplaced. Procedure(s) Performed: 1.) Right wrist DRUJ exam under anesthesia 2.) Right elbow exam under anesthesia 3.) Application of short arm fiberglass cast. Anesthesia: regional Surgeon: Tiago Noriega Estimated Blood Loss (ml): 0 Pathology: none sent Condition: stable Disposition: PACU Description of Procedure: This is a 45 year old female who sustained a left distal radius fracture with possible DRUJ injury due to widening of the DRUJ seen on initial imaging. She presents today for an exam under anesthesia of both her DRUJ and elbow with possible pinning vs closed treatment of her wrist injury. Risks and benefits of surgery were discussed with the patient including bleeding, damage to surrounding tissue, infection, need for further surgery as well as risks of anesthesia including pulmonary embolism and even and the patient wished to proceed with surgical intervention. The patient was seen in the pre-operative area by myself. Consent and H&P were completed and updated. The correct extremity was marked in the pre-operative area by myself and all other questions were answered. Patient received a pre-operative regional block for analgesia. Operative Narrative: The patient was brought to the operating room by the department of anesthesia. They remained on the portable stretcher and a rolling hand table was brought to the side of the operative extremity. Pre-operative time out was performed indicating the correct patient, procedure and laterality. All in the room agreed. The patient was then drifted off to sleep by the department of anesthesia. Utilizing live fluoroscopy AP/Lat views of the elbow were obtained due rule out any type of [place]-le[place] type lesion. Elbow was stressed and was stable to varus/valgus stress and no fracture of the radial head or remainder of elbow was appreciated. 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 Attention was the brought to the wrist. PA and lateral views demonstrated no significant widening that was previously seen on imaging. DRUJ shuck was performed and under live x-ray there was no evidence of volar or dorsal dislocation with stress. The non-displaced distal radius fracture was in acceptable alignment with preserved volar tilt, radial height and radial inclination. Decision to move forward with conservative treatment due to stability of her DRUJ and distal radius fracture after exam under anesthesia was performed. A short arm fiberglass cast was applied. The patient was then woken by the department of anesthesia and transferred to PACU in stable condition. Tiago Noriega D.O. Orthopedic Hand/Upper Extremity Surgeon
== END 2021-05-16 15:45 | disposition home or self-care (01) ==
LOC: OR 10:59
PROVIDERS: ATTEND Orthopaedic Surgery Hand Surgery
DX: S52.592A Other fractures of lower end of left radius, initial encounter for closed fracture (principal)
CPT/HCPCS: 25605; 81025; 64415; 76942; 80051; 85025; J2250; J1100; J0690; J2405; J2001; J3010; J2795; J0330; J2704; J1170

== ENCOUNTER 2021-08-10 13:57 | Emergency (ER) | payer BC, OTHER ==
[2021-08-10 14:01] VITALS: BP 170/85; PULSE 91; RESP 18; TEMP 98
--- NOTE | 2021-08-10 14:21 | XR ---
EXAMINATION TYPE: XR elbow complete LT DATE OF EXAM: 08/10/2021 CLINICAL HISTORY: pain TECHNIQUE: Frontal, lateral and oblique images of the left elbow are obtained. COMPARISON: None. FINDINGS: There are pathologic anterior and posterior fat pads noted. Occult fracture is difficult to exclude. Correlate clinically. The overlying soft tissue appears unremarkable. IMPRESSION: As above
--- NOTE | 2021-08-10 14:21 | XR ---
Left forearm HISTORY: Pain findings on COMPARISON: 05/11/2021. TECHNIQUE: 2 views of the left forearm were obtained. The nondisplaced fracture of the distal left radial metaphysis is again seen. There is been minimal s clerosis of the fracture margins. There is no radiopaque foreign body or abnormal soft tissue calcification. The ulna appears intact. IMPRESSION: Nondisplaced fracture the distal left radial metaphysis with minimal evidence for healing of the frac ture line.
[2021-08-10] MEDS ORDERED: KETOROLAC 15 MG/ML 1 ML VIAL IM STA (15:01)
[2021-08-10] MEDS ORDERED: MORPHINE SULFATE 2 MG/ML SYRINGE IM STA (15:21)
--- NOTE | 2021-08-10 15:36 | ED ---
General Adult HPI - General Chief complaint: Extremity Injury, Upper Stated complaint: Fall Possible broken arm Time Seen by Provider: 08/10/21 14:53 Source: patient Mode of arrival: ambulatory Limitations: no limitations - History of Present Illness Initial comments: Patient is a 45-year-old female presenting with chief complaint of left elbow pain. She states that she fell off the bed landing on her left elbow. She is complaining of tenderness, swelling. She has not taken any asymptomatic treatment at home. Patient recently had a fracture to the left forearm, recently had cast removed and states that her orthopedist told her that it is "still broken". She denies numbness, tingling, weakness, discoloration of the extremity, pallor, cold extremity. - Related Data Previous Rx's Medication Instructions Recorded HYDROcodone/APAP 5-325MG [[place] 1 tab PO Q6HR PRN 3 Days #12 tab 05/11/21 5-325] Ibuprofen [Motrin] 800 mg PO Q6HR #30 tab 05/11/21 HYDROcodone/APAP 5-325MG [[place] 1 tab PO Q6HR PRN 3 Days #24 tab 05/16/21 5-325] Allergies Allergy/AdvReac Type Severity Reaction Status Date / Time No Known Allergies Allergy Verified 05/16/21 11:30 Review of Systems ROS Statement: Those systems with pertinent positive or pertinent negative responses have been documented in the HPI. ROS Other: All systems not noted in ROS Statement are negative. Past Medical History Past Medical History: No Reported History Additional Past Medical History / Comment(s): kidney stones. back pain. FX LT WRIST 05/11/21 History of Any Multi-Drug Resistant Organisms: None Reported Past Surgical History: Cholecystectomy Additional Past Surgical History / Comment(s): lithotripsy Past Anesthesia/Blood Transfusion Reactions: No Reported Reaction Past Psychological History: No Psychological Hx Reported Smoking Status: Current every day smoker Past Alcohol Use History: None Reported Past Drug Use History: None Reported - Past Family History Mother Family Medical History: Cancer Father Family Medical History: Cancer General Exam Limitations: no limitations General appearance: alert, in no apparent distress Head exam: Present: atraumatic, normocephalic, normal inspection Eye exam: Present: normal appearance, EOMI. Absent: scleral icterus Neck exam: Present: normal inspection Left Upper Arm exam: Present: swelling. Absent: tenderness Elbow exam: Present: tenderness, swelling, erythema. Absent: normal inspection, full ROM Forearm Wrist exam: Present: normal inspection, full ROM. Absent: tenderness Neuro motor exam: Present: wrist extension intact, fingers 2-5 abduction intact Vascular: Present: radial pulse (palpated) Neurological exam: Present: alert, oriented X3, CN II-XII intact Psychiatric exam: Present: normal affect, normal mood Skin exam: Present: warm, dry, intact, normal color. Absent: rash Course Vital Signs 08/10/21 13:58 Temperature 98.0 F Pulse Rate 91 Respiratory 18 Rate Blood Pressure 170/85 O2 Sat by Pulse 95 Oximetry Medical Decision Making - Medical Decision Making Patient is a 45-year-old female presenting with chief complaint of left elbow pain. Today she fell off the bed landing on the left elbow. Patient had a recent fracture to left forearm, recently had cast removed and was for informed that the arm is technically still broken. On examination there is redness, tenderness, swelling to the left elbow. She has limited range of motion. Patient still has full range of motion of the wrist and fingers, normal sensation, radial pulses palpated. X-ray shows Pathologic anterior and posterior fat pads, making this suspicious for an occult fracture. Patient was placed in a posterior long-arm splint and instructed to follow-up with orthopedics on Friday. I provided her with an orthopedic referral, as patient stated she did not want to return to the orthopedist who treated her forearm. I educated her on pain management with Tylenol, Motrin, icing. I educated her on return parameters and alarm symptoms, report back to ER if any worsening symptoms. Answered all questions. Patient conveyed verbal understanding and agreed to the plan. I discussed this case with my attending Dr. Girard Disposition Clinical Impression: Elbow fracture Disposition: HOME SELF-CARE Condition: Good Instructions (If sedation given, give patient instructions): Elbow Fracture (ED) Additional Instructions: Follow up with orthopedics and primary care provider. Call orthopedic office today to schedule appointment. Take Motrin and Tylenol for pain control. Ice and elevate the extremity for pain relief. Report back to ER with any worsening symptoms. Is patient prescribed a controlled substance at d/c from ED?: No Referrals: None,Stated [Primary Care Provider] - 1-2 days Jonathan Hart PAC [PHYSICIAN FIREBOAT OPERATOR] - 1-2 days Time of Disposition: 15:36
== END 2021-08-10 15:55 | disposition home or self-care (01) ==
LOC: EC 13:57
DX: S59.102A Unspecified physeal fracture of upper end of radius, left arm, initial encounter for closed fracture (principal); F17.200 Nicotine dependence, unspecified, uncomplicated; W06.XXXA Fall from bed, initial encounter
CPT/HCPCS: 73080; 73090; 99283; 96372; J2270; J1885

== ENCOUNTER 2022-04-01 11:47 | Emergency (ER) | payer BC, OTHER ==
--- NOTE | 2022-04-01 12:19 | ED ---
URI HPI - General Chief Complaint: Upper Respiratory Infection Stated Complaint: sob Time Seen by Provider: 04/01/22 12:18 Source: patient, RN notes reviewed Mode of arrival: ambulatory Limitations: no limitations - History of Present Illness Initial Comments: 38-year-old female presents emergency Department chief complaint of cough and cold-like symptoms. Patient states symptoms started last 24 hours. Patient complains of subjective fevers chills cough dry in nature minimally productive Patient does admit to sore throat and ear pain and nasal congestion. Patient son was sick which she just negative for COVID-19. Patient has no GI symptoms no other complaints. - Related Data Previous Rx's Medication Instructions Recorded HYDROcodone/APAP 5-325MG [[place] 1 tab PO Q6HR PRN 3 Days #12 tab 05/11/21 5-325] Ibuprofen [Motrin] 800 mg PO Q6HR #30 tab 05/11/21 HYDROcodone/APAP 5-325MG [[place] 1 tab PO Q6HR PRN 3 Days #24 tab 05/16/21 5-325] Amoxic-Pot Clav 875-125Mg 1 tab PO Q12HR #20 tab 04/01/22 [Augmentin 875-125] Benzonatate [Tessalon Perle] 200 mg PO TID #20 capsule 04/01/22 predniSONE 50 mg PO DAILY #5 tab 04/01/22 Allergies Allergy/AdvReac Type Severity Reaction Status Date / Time No Known Allergies Allergy Verified 04/01/22 12:16 Review of Systems ROS Statement: Those systems with pertinent positive or pertinent negative responses have been documented in the HPI. ROS Other: All systems not noted in ROS Statement are negative. Past Medical History Past Medical History: No Reported History, Hypertension Additional Past Medical History / Comment(s): kidney stones. back pain. FX LT WRIST 05/11/21 History of Any Multi-Drug Resistant Organisms: None Reported Past Surgical History: Cholecystectomy Additional Past Surgical History / Comment(s): lithotripsy Past Anesthesia/Blood Transfusion Reactions: No Reported Reaction Past Psychological History: No Psychological Hx Reported Smoking Status: Current every day smoker Past Alcohol Use History: None Reported Past Drug Use History: None Reported - Past Family History Mother Family Medical History: Cancer Father Family Medical History: Cancer General Exam Limitations: no limitations Course Vital Signs 04/01/22 12:15 Temperature 98.5 F Pulse Rate 90 Respiratory 20 Rate Blood Pressure 147/83 O2 Sat by Pulse 99 Oximetry Medical Decision Making - Medical Decision Making Was pt. sent in by a medical professional or institution? @ -no Did you speak to anyone other than the patient for history? @ -no Did you review nursing and triage notes? @ -agree and reviewed Were old charts reviewed? @ -no Differential Diagnosis? @ -COVID-19, upper respiratory infection, influenza, RSV, pneumonia, bronchitis, sinusitis EKG interpreted by me (3pts min.)? @ -non X-rays interpreted by me (1pt min.)? @Chest x-ray interpreted by me shows acute bronchitis type changes.] CT interpreted by me (1pt min.)? @ -no U/S interpreted by me (1pt. min.)? @ -no What testing was considered but not performed? (CT, X-rays, U/S, labs)? Why? @ no What meds were considered but not given? Why? @ -no Did you discuss the management of the patient with other professionals? @ -no Did you reconcile home meds? @ -no Was smoking cessation discussed for >3mins.? @ -I discussed smoking cessation for greater than 3 minutes. The risk of smoking were discussed with the patient including but not limited to risks of cancer, stroke, coronary artery disease and COPD. Also discussed with patient were multiple methods of quitting smoking. Lastly we discussed the financial cost of smoking. Was critical care preformed (if so, how long)? @ -no Were there social determinants of health that impacted care today? How? (Homelessness, low income, unemployed, alcoholism, drug addiction, transportation, low edu. Level, literacy, decrease access to med. care, retirement, rehab)? @ -no Was there de-escalation of care discussed even if they declined? (Discuss DNR or withdrawal of care, Hospice)? @ -no What co-morbidities impacted this encounter? (DM, HTN, Smoking, COPD, CAD, Cance r, CVA, Hep., AIDS, mental health diagnosis, sleep apnea, morbid obesity)? @ -smoking Was patient admitted / discharged? @ -discharged Undiagnosed new problem with uncertain prognosis? @ -no Drug Therapy requiring intensive monitoring for toxicity (Heparin, Nitro, Insulin, Cardizem)? @ -no Were any procedures done? @ -no Diagnosis/symptom? @ -Acute bronchitis Acute, or Chronic, or Acute on Chronic? @ -Acute Uncomplicated (without systemic symptoms) or Complicated (systemic symptoms)? @ -Uncomplicated Side effects of treatment? @ -none Exacerbation, Progression, or Severe Exacerbation] @ -no Poses a threat to life or bodily function? @ -no - Lab Data Lab Results 04/01/22 Range/Units 12:24 Influenza Type A (PCR) Not Detected (Not Detectd) Influenza Type B (PCR) Not Detected (Not Detectd) RSV (PCR) Not Detected (Not Detectd) SARS-CoV-2 (PCR) Not Detected (Not Detectd) Disposition Clinical Impression: Acute bronchitis Disposition: HOME SELF-CARE Condition: Stable Instructions (If sedation given, give patient instructions): Acute Bronchitis (ED) Additional Instructions: Please return to the Emergency Department if symptoms worsen or any other concerns. Prescriptions: Amoxic-Pot Clav 875-125Mg [Augmentin 875-125] 1 tab PO Q12HR #20 tab predniSONE 50 mg PO DAILY #5 tab Benzonatate [Tessalon Perle] 200 mg PO TID #20 capsule Is patient prescribed a controlled substance at d/c from ED?: No Referrals: Alex Flowers MD [Primary Care Provider] - 1-2 days Time of Disposition: 13:55
--- NOTE | 2022-04-01 12:40 | XR ---
EXAMINATION TYPE: XR chest 2V DATE OF EXAM: 04/01/2022 COMPARISON: None HISTORY: 46-year-old female with cough, difficulty in breathing TECHNIQUE: PA and lateral views FINDINGS: Heart normal size. Aorta and pulmonary vasculature within normal limits. Mild interstitial prominence . No consolidation or pleural effusion. Cholecystectomy clips. IMPRESSION: Some interstitial prominence could reflect bronchitis or asthma. No focal infiltrate.
[2022-04-01 14:10] VITALS: BP 136/77; PULSE 80; RESP 16; TEMP 97.9
== END 2022-04-01 14:08 | disposition home or self-care (01) ==
LOC: EC 11:47
DX: J40 Bronchitis, not specified as acute or chronic (principal); I10 Essential (primary) hypertension; F17.200 Nicotine dependence, unspecified, uncomplicated; Z20.822 Contact with and (suspected) exposure to COVID-19
CPT/HCPCS: 71046; 87636; 99285

== ENCOUNTER → 2023-04-04 | Outpatient (CLI) | payer OTHER ==
--- NOTE | 2023-04-07 20:18 | MM ---
Reason for Exam: Screening (asymptomatic). Patient History: Menarche at age 6. First Full-Term at age 16. Postmenopausal. Risk Values: Vale 5 year model risk: 0.7%. NCI Lifetime model risk: 7.3%. Tissue Density: There are scattered fibroglandular densities. Findings: Analyzed By CAD. Pattern appears symmetrical. No suspicious groups of microcalcifications, spiculated or lobular masses, architectural distortion or other secondary signs of malignancy are mammographically apparent. Overall Assessment: Benign, BI-RAD 2 Management: Screening Mammogram of both breasts in 1 year. A negative mammogram report should not preclude additional follow up of suspicious palpable abnormalities. Patient should continue monthly self breast exam. A clinical breast exam by your physician is recommended on an annual basis and results should be correlated with mammographic findings. Electronically signed and approved by: Jose D Yu D.O. Radiologis
== END | disposition home or self-care (01) ==
LOC: RADMAMWWP 16:40
PROVIDERS: ATTEND Family Medicine
DX: Z12.31 Encounter for screening mammogram for malignant neoplasm of breast (principal); Z78.0 Asymptomatic menopausal state
CPT/HCPCS: 77063; 77067

== ENCOUNTER 2023-06-28 14:05 | Emergency (ER) | payer OTHER ==
[2023-06-28 14:18] VITALS: TEMP 98
--- NOTE | 2023-06-28 14:36 | ED ---
General Adult HPI - General Chief complaint: Chest Pain Stated complaint: Chest pain Time Seen by Provider: 06/28/23 14:13 Source: patient, RN notes reviewed, old records reviewed Mode of arrival: ambulatory Limitations: no limitations - History of Present Illness Initial comments: 47-year-old female presenting with substernal chest pain for the past 1 hour. Pain is intermittent, sharp pain. Followed by periods of relief. No associated vomiting but there is nausea. No prior history of CAD. No dyspnea. No fever or cough. Pain does not radiate. - Related Data Home Medications Medication Instructions Recorded Confirmed Albuterol Sulfate [Ventolin HFA] 1 - 2 puff INHALATION RT-QID PRN 06/28/23 06/28/23 Atorvastatin [Lipitor] 40 mg PO DAILY 06/28/23 06/28/23 Chlorthalidone [Hygroton] 25 mg PO DAILY 06/28/23 06/28/23 Ergocalciferol (Vitamin D2) 1,250 mcg PO QMONTHLY 06/28/23 06/28/23 [Drisdol (50,000 Iu)] Fluticasone Nasal Reed [Flonase 2 spray EA NOSTRIL DAILY 06/28/23 06/28/23 Nasal Reed] HYDROcodone/APAP 10-325MG [[place] 1 tab PO TID PRN 06/28/23 06/28/23 10-325] Ibuprofen [Motrin] 800 mg PO BID PRN 06/28/23 06/28/23 Losartan Potassium [Cozaar] 100 mg PO DAILY 06/28/23 06/28/23 Omeprazole [PriLOSEC] 20 mg PO AC-BID 06/28/23 06/28/23 Sertraline [Zoloft] 100 mg PO DAILY 06/28/23 06/28/23 Allergies Allergy/AdvReac Type Severity Reaction Status Date / Time No Known Allergies Allergy Verified 06/28/23 16:46 Review of Systems ROS Statement: Those systems with pertinent positive or pertinent negative responses have been documented in the HPI. ROS Other: All systems not noted in ROS Statement are negative. Past Medical History Past Medical History: No Reported History, Hypertension Additional Past Medical History / Comment(s): kidney stones. back pain. FX LT WRIST 05/11/21 History of Any Multi-Drug Resistant Organisms: None Reported Past Surgical History: Cholecystectomy Additional Past Surgical History / Comment(s): lithotripsy Past Anesthesia/Blood Transfusion Reactions: No Reported Reaction Past Psychological History: No Psychological Hx Reported Smoking Status: Current every day smoker Past Alcohol Use History: None Reported Past Drug Use History: None Reported - Past Family History Mother Family Medical History: Cancer Father Family Medical History: Cancer General Exam Limitations: no limitations General appearance: alert, in no apparent distress Head exam: Present: atraumatic, normocephalic Eye exam: Present: normal appearance, PERRL ENT exam: Present: normal exam Neck exam: Present: normal inspection. Absent: tenderness, meningismus Respiratory exam: Present: normal lung sounds bilaterally. Absent: respiratory distress, wheezes Cardiovascular Exam: Present: regular rate, normal rhythm GI/Abdominal exam: Present: soft. Absent: distended, tenderness, guarding Extremities exam: Present: normal inspection, normal capillary refill. Absent: pedal edema, joint swelling, calf tenderness Neurological exam: Present: alert, oriented X3 Psychiatric exam: Present: normal affect, normal mood Skin exam: Present: warm, dry, intact. Absent: cyanosis, diaphoretic Course Vital Signs 06/28/23 06/28/23 06/28/23 14:08 15:24 17:07 Temperature 98 F Pulse Rate 79 68 70 Respiratory 20 18 18 Rate Blood Pressure 172/95 148/75 140/94 O2 Sat by Pulse 100 100 98 Oximetry Medical Decision Making - Medical Decision Making Was pt. sent in by a medical professional or institution (, PA, [employer], urgent care, hospital, or fci...) When possible be specific @ -No Did you speak to anyone other than the patient for history (EMS, parent, family, police, friend...)? What history was obtained from this source @ -No Did you review nursing and triage notes (agree or disagree)? Why? @ -I reviewed and agree with nursing and triage notes Were old charts reviewed (outside hosp., previous admission, EMS record, old EKG, old radiological studies, urgent care reports/EKG's, fci records)? Report findings @ -No old charts were reviewed Differential Diagnosis (chest pain, altered mental status, abdominal pain women, abdominal pain men, vaginal bleeding, weakness, fever, dyspnea, syncope, headache, dizziness, GI bleed, back pain, seizure, CVA, palpatations, mental health, musculoskeletal)? @ -Differential Chest Pain: Stable Angina, Unstable Angina, STEMI, NSTEMI Aortic Dissection, Pneumothorax, Musculoskeletal, Esophageal Spasm GERD, Cholecystitis, Pancreatitis, Zoster, this is not meant to be an all-inclusive list. EKG interpreted by me (3pts min.). @Sinus rhythm incomplete right bundle branch block, rate of 75, CO interval 139, QRS duration 107, QTc [address] segment elevation. X-rays interpreted by me (1pt min.). @ -Chest x-ray negative for acute cardiopulmonary findings CT interpreted by me (1pt min.). @CT brain negative for acute findings, no intracranial hemorrhage. U/S interpreted by me (1pt. min.). @ -None done What testing was considered but not performed or refused? (CT, X-rays, U/S, labs)? Why? @ -None What meds were considered but not given or refused? Why? @ -None Did you discuss the management of the patient with other professionals (professionals i.e. , PA, [employer], lab, RT, psych nurse, social services analyst, bundle breaker, teacher, house officer, egg caser)? Give summary @ -No Was smoking cessation discussed for >3mins.? @ -No Was critical care preformed (if so, how long)? @ -No Were there social determinants of health that impacted care today? How? (Homelessness, low income, unemployed, alcoholism, drug addiction, transportation, low edu. Level, literacy, decrease access to med. care, [facility], rehab)? @ -No Was there de-escalation of care discussed even if they declined (Discuss DNR or withdrawal of care, Hospice)? DNR status @ -No What co-morbidities impacted this encounter? (DM, HTN, Smoking, COPD, CAD, Cancer, CVA, ARF, Chemo, Hep., AIDS, mental health diagnosis, sleep apnea, morbid obesity)? @ -None Was patient admitted / discharged? Hospital course, mention meds given and route, prescriptions, significant lab abnormalities, going to OR and other pertinent info. @ -[47-year-old female presenting with an episode of chest pain. Pain was central chest, lasting seconds and then resolving, intermittent in nature. EKG sinus rhythm without definitive signs of ischemia, no ST segment elevation. Chest x-ray clear. Patient has normal CBC, normal CMP, negative D-dimer, negative troponin. She did develop headache while in the emergency department and head CT was obtained which was negative for intracranial hemorrhage or mass effect. I did reevaluate the patient she was significantly improved without further chest pain. I offered observation for further cardiac testing she declined and preferred to be discharged home. She was given strict return parameters. Undiagnosed new problem with uncertain prognosis? @ -No Drug Therapy requiring intensive monitoring for toxicity (Heparin, Nitro, Insulin, Cardizem)? @ -No Were any procedures done? @ -No Diagnosis/symptom? @Atypical chest pain Acute, or Chronic, or Acute on Chronic? @ -Acute Uncomplicated (without systemic symptoms) or Complicated (systemic symptoms)? @ -Default Side effects of treatment? @ -No Exacerbation, Progression, or Severe Exacerbation? @ -No Poses a threat to life or bodily function? How? (Chest pain, [place], [place], pneumonia, PE, COPD, DKA, ARF, appy, cholecystitis, CVA, Diverticulitis, Homicidal, Suicidal, threat to staff... and all critical care pts) @Low risk at this time] - Lab Data Result diagrams: 06/28/23 15:04 06/28/23 15:04 Lab Results 06/28/23 06/28/23 06/28/23 Range/Units 15:04 15:04 15:04 WBC 10.0 (3.8-10.6) k/uL RBC 4.96 (3.80-5.40) m/uL Hgb 15.3 (11.4-16.0) gm/dL Hct 47.2 H (34.0-46.0) % MCV 95.1 (80.0-100.0) fL MCH 30.8 (25.0-35.0) pg MCHC 32.4 (31.0-37.0) g/dL RDW 13.2 (11.5-15.5) % Plt Count 166 (150-450) k/uL MPV 10.4 Neutrophils % 66 % Lymphocytes % 23 % Monocytes % 5 % Eosinophils % 3 % Basophils % 1 % Neutrophils # 6.6 (1.3-7.7) k/uL Lymphocytes # 2.3 (1.0-4.8) k/uL Monocytes # 0.5 (0-1.0) k/uL Eosinophils # 0.3 (0-0.7) k/uL Basophils # 0.1 (0-0.2) k/uL PT 10.7 (10.0-12.5) sec INR 1.0 (<1.2) APTT 25.2 (22.0-30.0) sec D-Dimer 0.29 (<0.60) mg/L FEU Sodium 142 (137-145) mmol/L Potassium 3.7 (3.5-5.1) mmol/L Chloride 109 H (98-107) mmol/L Carbon Dioxide 24 (22-30) mmol/L Anion Gap 9 mmol/L BUN 13 (7-17) mg/dL Creatinine 0.71 (0.52-1.04) mg/dL Est GFR (CKD-EPI)AfAm >90 (>60 ml/min/1.73 sqM) Est GFR (CKD-EPI)NonAf >90 (>60 ml/min/1.73 sqM) Glucose 119 H (74-99) mg/dL Calcium 8.8 (8.4-10.2) mg/dL Magnesium 1.9 (1.6-2.3) mg/dL Total Bilirubin 0.6 (0.2-1.3) mg/dL AST 30 (14-36) U/L ALT 28 (4-34) U/L Alkaline Phosphatase 99 (38-126) U/L Troponin I (0.000-0.034) ng/mL Total Protein 7.6 (6.3-8.2) g/dL Albumin 4.2 (3.5-5.0) g/dL Lipase 132 (23-300) U/L 06/28/23 06/28/23 Range/Units 15:04 17:11 WBC (3.8-10.6) k/uL RBC (3.80-5.40) m/uL Hgb (11.4-16.0) gm/dL Hct (34.0-46.0) % MCV (80.0-100.0) fL MCH (25.0-35.0) pg MCHC (31.0-37.0) g/dL RDW (11.5-15.5) % Plt Count (150-450) k/uL MPV Neutrophils % % Lymphocytes % % Monocytes % % Eosinophils % % Basophils % % Neutrophils # (1.3-7.7) k/uL Lymphocytes # (1.0-4.8) k/uL Monocytes # (0-1.0) k/uL Eosinophils # (0-0.7) k/uL Basophils # (0-0.2) k/uL PT (10.0-12.5) sec INR (<1.2) APTT (22.0-30.0) sec D-Dimer (<0.60) mg/L FEU Sodium (137-145) mmol/L Potassium (3.5-5.1) mmol/L Chloride (98-107) mmol/L Carbon Dioxide (22-30) mmol/L Anion Gap mmol/L BUN (7-17) mg/dL Creatinine (0.52-1.04) mg/dL Est GFR (CKD-EPI)AfAm (>60 ml/min/1.73 sqM) Est GFR (CKD-EPI)NonAf (>60 ml/min/1.73 sqM) Glucose (74-99) mg/dL Calcium (8.4-10.2) mg/dL Magnesium (1.6-2.3) mg/dL Total Bilirubin (0.2-1.3) mg/dL AST (14-36) U/L ALT (4-34) U/L Alkaline Phosphatase (38-126) U/L Troponin I <0.012 <0.012 (0.000-0.034) ng/mL Total Protein (6.3-8.2) g/dL Albumin (3.5-5.0) g/dL Lipase (23-300) U/L Disposition Clinical Impression: Atypical chest pain, Chest pain Disposition: HOME SELF-CARE Condition: Good Instructions (If sedation given, give patient instructions): Chest Pain (ED) Is patient prescribed a controlled substance at d/c from ED?: No Referrals: Alex Flowers MD [Primary Care Provider] - 1-2 days Time of Disposition: 18:25
[2023-06-28] MEDS: FAMOTIDINE 20 MG/2 ML VIAL IV STA (15:25)
[2023-06-28 15:26] VITALS: RESP 18
[2023-06-28 15:29] LABS: ALT 28 U/L (4-34); AST 30 U/L (14-36); African American GFR (CKD) >90 (>60 ml/min/1.73 sqM); Albumin 4.2 g/dL (3.5-5.0); Alkaline Phosphatase 99 U/L (38-126); Anion Gap 9 mmol/L; Blood Urea Nitrogen 13 mg/dL (7-17); Calcium 8.8 mg/dL (8.4-10.2); Carbon Dioxide 24 mmol/L (22-30); Chloride 109 mmol/L (98-107); Glucose 119 mg/dL (74-99); Lipase 132 U/L (23-300); Magnesium 1.9 mg/dL (1.6-2.3); Non-African American GFR(CKD) >90 (>60 ml/min/1.73 sqM); Potassium 3.7 mmol/L (3.5-5.1); Sodium 142 mmol/L (137-145); Total Bilirubin 0.6 mg/dL (0.2-1.3); Total Protein 7.6 g/dL (6.3-8.2)
[2023-06-28] MEDS: ACETAMINOPHEN TAB 500 MG TAB PO STA (15:39)
[2023-06-28] MEDS: HYDROmorphone 0.5 MG/0.5 ML SYRINGE IVP STA ×2 (15:41→17:08)
[2023-06-28 15:43] LABS: Partial Thromboplastin Time 25.2 sec (22.0-30.0); Prothrombin Time 10.7 sec (10.0-12.5)
[2023-06-28] MEDS: ONDANSETRON 4 MG/2 ML VIAL IVP STA (15:43)
[2023-06-28 15:46] LABS: Basophils # (A) 0.1 k/uL (0-0.2); Basophils % (A) 1 %; Eosinophils # (A) 0.3 k/uL (0-0.7); Eosinophils % (A) 3 %; HCT 47.2 % (34.0-46.0); HGB 15.3 gm/dL (11.4-16.0); Lymphocytes # (A) 2.3 k/uL (1.0-4.8); Lymphocytes % (A) 23 %; MCH 30.8 pg (25.0-35.0); MCHC 32.4 g/dL (31.0-37.0); MCV 95.1 fL (80.0-100.0); Mean Platelet Volume 10.4; Monocytes # (A) 0.5 k/uL (0-1.0); Monocytes % (A) 5 %; Neutrophils # (A) 6.6 k/uL (1.3-7.7); Neutrophils % (A) 66 %; Platelet Count 166 k/uL (150-450); RBC 4.96 m/uL (3.80-5.40); RDW 13.2 % (11.5-15.5)
--- NOTE | 2023-06-28 16:18 | XR ---
EXAMINATION TYPE: XR chest 2V DATE OF EXAM: 06/28/2023 3:23 PM CLINICAL INDICATION:Female, 47 years old with history of Chest Pain; [facility] COMPARISON: 04/01/2022 TECHNIQUE: XR chest 2V. Frontal and lateral views of the chest.. FINDINGS: Lines/Tubes/Devices: No indwelling lines are seen. Heart/mediastinum: Heart size is normal. Mediastinum appears normal. Pulmonary vascularity: Not increased, Lungs/Pleura: There is no evidence of pleural effusion, focal consolidation, or pneumothorax. Stable appearing mildly prominent interstitial markings, likely chronic changes. Musculoskeletal: No acute osseous abnormality demonstrated in the limits of the exam. Mild degenerat dennys changes of the spine. Other findings: Surgical clips right upper abdomen. EKG leads overlie the chest. IMPRESSION: No acute findings, or significant interval change.
--- NOTE | 2023-06-28 17:50 | CT ---
EXAMINATION TYPE: CT brain wo con CT DLP: 1105.3 mGycm, Automated exposure control for dose reduction was used. DATE OF EXAM: 06/28/2023 4:29 PM COMPARISON: None. CLINICAL INDICATION:Female, 47 years old with history of WHITE, headache/pressure TECHNIQUE: Brain: Axial CT images of the brain were obtained with coronal and sagittal reformats created and rev iewed. Contrast used: None. Oral contrast used: None. FINDINGS: Extra-axial spaces: No abnormal extra-axial fluid collections. Ventricular system: Ventricles appear dilated in proportion to the degree of cerebral atrophy. Cerebral parenchyma: No increased attenuation to suggest acute intraparenchymal hemorrhage. The gra y-white matter interface appears maintained. Moderate generalized brain atrophy. Scattered hypoatte nuating areas are seen within the cerebral white matter, nonspecific but most often seen with chronic microvascular ischemic changes; moderate in degree. Cerebellum: No acute abnormality. Mass effect: No evidence of mass effect or midline shift. Intracranial vasculature: Atherosclerotic calcifications of the larger arteries near the skull base. Soft tissues: No acute or concerning abnormality. Visualized orbits: Orbital contents appear grossly intact. There has likely been previous lens surg daniela. Calvarium/osseous structures: No evidence of calvarial fracture. Paranasal sinuses and mastoid air cells: Clear. MRI is more sensitive for detecting acute processes such as infarct, and may be considered if clinica lly warranted. IMPRESSION: No acute intracranial CT abnormality.
[2023-06-28] MEDS: KETOROLAC 15 MG/ML 1 ML VIAL IVP STA (18:28)
[2023-06-28 18:47] VITALS: BP 152/86; PULSE 75
== END 2023-06-28 18:45 | disposition home or self-care (01) ==
LOC: EC 14:05
DX: I45.10 Unspecified right bundle-branch block (principal); F17.200 Nicotine dependence, unspecified, uncomplicated
CPT/HCPCS: 36415; 93005; 85379; 80053; 83690; 83735; 84484; 85025; 85610; 85730; 71046; 70450; 99285; 96374; 96375 ×3; 96376; J2405; J3490; J1885; J1170